=== PATIENT | male | born 1965 | race Caucasian/White ===

== ENCOUNTER 2020-07-25 14:25 | Outpatient (CLI) | payer OTHER | END 2020-07-25 14:26 | disposition home or self-care (01) | LOC: LAB 14:25 | PROVIDERS: ATTEND Pharmacist | DX: Z95.4 Presence of other heart-valve replacement (principal); Z79.01 Long term (current) use of anticoagulants | CPT/HCPCS: 85610 ==

== ENCOUNTER 2020-08-03 11:12 | Outpatient (CLI) | payer OTHER | END 2020-08-03 11:13 | disposition home or self-care (01) | LOC: LAB 11:12 | PROVIDERS: ATTEND Pharmacist | DX: Z79.01 Long term (current) use of anticoagulants (principal); Z95.4 Presence of other heart-valve replacement | CPT/HCPCS: 85610 ==

== ENCOUNTER 2020-08-10 12:01 | Outpatient (CLI) | payer OTHER | END 2020-08-10 12:02 | disposition home or self-care (01) | LOC: LAB 12:01 | PROVIDERS: ATTEND Pharmacist | DX: Z95.4 Presence of other heart-valve replacement (principal); Z79.01 Long term (current) use of anticoagulants | CPT/HCPCS: 85610 ==

== ENCOUNTER 2020-08-24 08:00 | Outpatient (CLI) | payer OTHER | END 2020-08-24 23:59 | disposition home or self-care (01) | LOC: LAB 08:00 | PROVIDERS: ATTEND Pharmacist | DX: Z79.01 Long term (current) use of anticoagulants (principal); Z95.4 Presence of other heart-valve replacement | CPT/HCPCS: 85610 ==

== ENCOUNTER 2020-09-14 10:11 | Outpatient (CLI) | payer OTHER | END 2020-09-14 10:12 | disposition home or self-care (01) | LOC: LAB 10:11 | PROVIDERS: ATTEND Pharmacist | DX: Z95.4 Presence of other heart-valve replacement (principal); Z79.01 Long term (current) use of anticoagulants | CPT/HCPCS: 85610 ==

== ENCOUNTER 2020-09-27 08:00 | Outpatient (CLI) | payer OTHER | END 2020-09-27 23:59 | disposition home or self-care (01) | LOC: LAB 08:00 | PROVIDERS: ATTEND Pharmacist | DX: Z79.01 Long term (current) use of anticoagulants (principal); Z95.4 Presence of other heart-valve replacement | CPT/HCPCS: 85610 ==

== ENCOUNTER 2022-02-01 08:00 | Outpatient (CLI) | payer OTHER ==
[2022-02-01 20:30] LABS: BILIRUBIN,URINE NEGATIVE (NEGATIVE); GLUCOSE, URINE (UA) NEGATIVE (NEGATIVE); KETONES,URINE (UA) NEGATIVE (NEGATIVE); LEUKOCYTE ESTERASE, URINE MODERATE (NEGATIVE); NITRITE,URINE POSITIVE (NEGATIVE); OCCULT BLOOD,URINE LARGE (NEGATIVE); PH,URINE 5.5 PH (5.0-7.5); PROTEIN,URINE 30 mg/dL (NEGATIVE); UROBILINOGEN,URINE 0.2 (NORMAL) E.U./dL (NORMAL)
[2022-02-01 20:33] LABS: CLARITY,URINE SL. CLOUDY (CLEAR)
[2022-02-01 20:37] LABS: WBC CLUMPS,URINE PRESENT; WBC,URINE >25 /HPF (0-3)
[2022-02-01 20:38] LABS: BACTERIA,URINE Many /HPF (None Seen); SQUAMOUS EPITHELIAL CELL,UR FEW Squamous (<= Few)
== END 2022-02-01 23:59 | disposition home or self-care (01) ==
LOC: LAB.S 08:00
PROVIDERS: ATTEND Physician Assistant Medical
DX: N30.01 Acute cystitis with hematuria (principal)
CPT/HCPCS: 81001; 87077; 87086; 87181

== ENCOUNTER 2022-02-02 10:08 | Inpatient (IN) | payer OTHER ==
[2022-02-02] MEDS ORDERED: SODIUM CHLORIDE 0.9% 2,449.41 ML IV STA (10:58)
--- NOTE | 2022-02-02 10:59 | ED Physician Documentation ---
PD HPI URI - Stated complaint Stated Complaint: SEIZURE/FEVER - Chief complaint Chief Complaint: General - History obtained from History obtained from: Patient - History of Present Illness Timing - onset: How many days ago (2) Timing duration: Days (He has had a mild feeling of general unwellness and malaise for maybe a week but really dysuria and hematuria and fever the last 2 days. Seen at walk-in clinic and diagnosed with UTI based on urinalysis and symptoms. Given a prescription But pharmacy did not have it yet so he has not started it.) Timing details: Abrupt onset, Still present Associated symptoms: Fever, Chills (with rigors (he dscribed as "seizures") last night several times.) Contributing factors: Immunocompromised. No: Sick contact, Unimmunized Improves by: Rest, Medication (fever did go down with Tylenol.) Worsened by: Activity (feeling of weakness/fatigue.) Similar symptoms before: Has not had sx before Recently seen: Clinic (walk in yesterday and given Rx for meds but pharmacy had not filled it at the time. Pt did take an doxycycline he had Rx from his [employer] in case of bronchial infection.) Review of Systems Constitutional: reports: Fever, Chills, Myalgias, Fatigue Nose: denies: Rhinorrhea / runny nose, Congestion Throat: denies: Sore throat Cardiac: denies: Chest pain / pressure Respiratory: denies: Dyspnea, Cough GI: reports: Nausea. denies: Abdominal Pain, Vomiting, Diarrhea : reports: Dysuria (for 2 days), Frequency, Hematuria Skin: denies: Rash, Lesions Musculoskeletal: denies: Neck pain Neurologic: reports: Generalized weakness, Near syncope. 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[employer].) PD PAST MEDICAL HISTORY - Past Medical History Past Medical History: Yes Cardiovascular: Arrhythmia (with pacemaker) Respiratory: Other (sarcoidosis) Neuro: None Endocrine/Autoimmune: None GI: None - Past Surgical History Cardiovascular: Pacemaker - Allergies Allergies/Adverse Reactions: Allergies Allergy/AdvReac Type Severity Reaction Status Date / Time clarithromycin [From Biaxin] Allergy Unknown Verified 02/02/22 10:38 clindamycin Allergy Unknown Verified 02/02/22 10:38 Penicillins Allergy Unknown Verified 02/02/22 10:38 PD ED PE NORMAL - Vitals Vital signs reviewed: Yes (hypotensive but not tachycardic) - General General: Alert and oriented X 3, No acute distress, Well developed/nourished - HEENT HEENT: Pharynx benign - Neck Neck: Supple, no meningeal sign, No adenopathy - Cardiac Cardiac: RRR, No murmur - Respiratory Respiratory: No respiratory distress, Clear bilaterally - Abdomen Abdomen: Soft, Non tender - Male Male : Deferred - Rectal Rectal: Deferred - Back Back: Other (some flank tender right side. NO rash. ) - Derm Derm: Normal color, Warm and dry - Neuro Neuro: Alert and oriented X 3, No motor deficit, No sensory deficit, Normal speech Eye Opening: Spontaneous Motor: Obeys Commands Verbal: Oriented GCS Score: 15 Results - Vitals Vitals: Vital Signs - 24 hr 02/02/22 02/02/22 02/02/22 10:27 11:14 12:30 Temperature 37.2 C 37.0 C Heart Rate 74 75 75 Respiratory 18 19 18 Rate Blood Pressure 77/47 L 90/69 86/63 L O2 Saturation 99 98 100 02/02/22 02/02/22 02/02/22 13:30 14:30 16:30 Temperature 36.8 C Heart Rate 75 75 75 Respiratory 20 16 20 Rate Blood Pressure 94/65 92/62 98/83 H O2 Saturation 98 98 99 02/02/22 02/02/22 17:03 17:30 Temperature 36.9 C Heart Rate 75 Respiratory 20 Rate Blood Pressure 116/78 O2 Saturation 100 Oxygen O2 Source Room air - Labs Labs: Laboratory Tests 02/02/22 02/02/22 02/02/22 10:37 10:45 10:45 WBC 11.6 H RBC 4.15 L Hgb 13.9 L Hct 39.3 L MCV 94.7 H MCH 33.5 H MCHC 35.4 RDW 12.5 Plt Count TNP MPV TNP Neut # (Auto) Not Reportable Lymph # (Auto) Not Reportable [place] # (Auto) Not Reportable Eos # (Auto) Not Reportable Baso # (Auto) Not Reportable Absolute Nucleated RBC Not Reportable Total Counted 100 Band Neuts % (Manual) 52 H Abnorm Lymph % (Manual) 0 Metamyelocytes % 6 H Myelocytes % 2 H Nucleated RBC % Not Reportable Neutrophils # (Manual) 10.7 H Lymphocytes # (Manual) 0.0 L Monocytes # (Manual) 0.0 Eosinophils # (Manual) 0.0 Basophils # (Manual) 0.0 Differential Comment MANUAL DIFFERENTIAL Manual Slide Review Indicated WBC Morphology 2+ VACUOLATION Platelet Morphology PLATELET CLUMPING Sodium 133 L Potassium 3.7 Chloride 96 L Carbon Dioxide 22 Anion Gap 15.0 H BUN 29 H Creatinine 2.4 H Estimated GFR (MDRD) 28 L Glucose 171 H Lactic Acid Calcium 9.0 Magnesium 1.3 L Total Bilirubin 1.7 H AST 80 H ALT 46 Alkaline Phosphatase 186 H Total Protein 6.7 Albumin 3.5 Globulin 3.2 Albumin/Globulin Ratio 1.1 Procalcitonin Urine Color BROWN Urine Clarity CLOUDY Urine pH 5.5 Ur Specific Hopkins 1.025 Urine Protein >=300 H Urine Glucose (UA) NEGATIVE Urine Ketones NEGATIVE Urine Occult Blood LARGE H Urine Nitrite NEGATIVE Urine Bilirubin NEGATIVE Urine Urobilinogen 1 (NORMAL) Ur Leukocyte Esterase MODERATE H Urine RBC TNTC H Urine WBC >25 H Urine WBC Clumps PRESENT Ur Epithelial Cells MANY Renal Tubular H Ur Squamous Epith Cells FEW Squamous Urine Bacteria Many H Urine Culture Comments INDICATED Nasal Adenovirus (PCR) Nasal B. parapertussis DNA (PCR) Nasal Coronavir 229E PCR Nasal Coronavir HKU1 PCR Nasal Coronavir NL63 PCR Nasal Coronavir OC43 PCR Nasal Enterovir/Rhinovir PCR Nasal Influenza B PCR Nasal Influenza A PCR Nasal Parainfluen 1 PCR Nasal Parainfluen 2 PCR Nasal Parainfluen 3 PCR Nasal Parainfluen 4 PCR Nasal RSV (PCR) Nasal B.pertussis DNA PCR Nasal C.pneumoniae (PCR) Jordon Human Metapneumo PCR Nasal M.pneumoniae (PCR) Nasal SARS-CoV-2 (PCR) 02/02/22 02/02/22 02/02/22 10:45 10:45 11:25 WBC RBC Hgb Hct MCV MCH MCHC RDW Plt Count MPV Neut # (Auto) Lymph # (Auto) [place] # (Auto) Eos # (Auto) Baso # (Auto) Absolute Nucleated RBC Total Counted Band Neuts % (Manual) Abnorm Lymph % (Manual) Metamyelocytes % Myelocytes % Nucleated RBC % Neutrophils # (Manual) Lymphocytes # (Manual) Monocytes # (Manual) Eosinophils # (Manual) Basophils # (Manual) Differential Comment Manual Slide Review WBC Morphology Platelet Morphology Sodium Potassium Chloride Carbon Dioxide Anion Gap BUN Creatinine Estimated GFR (MDRD) Glucose Lactic Acid 4.6 H* Calcium Magnesium Total Bilirubin AST ALT Alkaline Phosphatase Total Protein Albumin Globulin Albumin/Globulin Ratio Procalcitonin 142.912 H* Urine Color Urine Clarity Urine pH Ur Specific Hopkins Urine Protein Urine Glucose (UA) Urine Ketones Urine Occult Blood Urine Nitrite Urine Bilirubin Urine Urobilinogen Ur Leukocyte Esterase Urine RBC Urine WBC Urine WBC Clumps Ur Epithelial Cells Ur Squamous Epith Cells Urine Bacteria Urine Culture Comments Nasal Adenovirus (PCR) NOT DETECTED Nasal B. parapertussis DNA (PCR) NOT DETECTED Nasal Coronavir 229E PCR NOT DETECTED Nasal Coronavir HKU1 PCR NOT DETECTED Nasal Coronavir NL63 PCR NOT DETECTED Nasal Coronavir OC43 PCR NOT DETECTED Nasal Enterovir/Rhinovir PCR NOT DETECTED Nasal Influenza B PCR NOT DETECTED Nasal Influenza A PCR NOT DETECTED Nasal Parainfluen 1 PCR NOT DETECTED Nasal Parainfluen 2 PCR NOT DETECTED Nasal Parainfluen 3 PCR NOT DETECTED Nasal Parainfluen 4 PCR NOT DETECTED Nasal RSV (PCR) NOT DETECTED Nasal B.pertussis DNA PCR NOT DETECTED Nasal C.pneumoniae (PCR) NOT DETECTED Jordon Human Metapneumo PCR NOT DETECTED Nasal M.pneumoniae (PCR) NOT DETECTED Nasal SARS-CoV-2 (PCR) NOT DETECTED 02/02/22 02/02/22 02/02/22 14:13 17:02 17:20 WBC RBC Hgb Hct MCV MCH MCHC RDW Plt Count MPV Neut # (Auto) Lymph # (Auto) [place] # (Auto) Eos # (Auto) Baso # (Auto) Absolute Nucleated RBC Total Counted Band Neuts % (Manual) Abnorm Lymph % (Manual) Metamyelocytes % Myelocytes % Nucleated RBC % Neutrophils # (Manual) Lymphocytes # (Manual) Monocytes # (Manual) Eosinophils # (Manual) Basophils # (Manual) Differential Comment Manual Slide Review WBC Morphology Platelet Morphology Sodium Potassium Chloride Carbon Dioxide Anion Gap BUN Creatinine Estimated GFR (MDRD) Glucose Lactic Acid 3.0 H* 2.6 H 2.5 H Calcium Magnesium Total Bilirubin AST ALT Alkaline Phosphatase Total Protein Albumin Globulin Albumin/Globulin Ratio Procalcitonin Urine Color Urine Clarity Urine pH Ur Specific Hopkins Urine Protein Urine Glucose (UA) Urine Ketones Urine Occult Blood Urine Nitrite Urine Bilirubin Urine Urobilinogen Ur Leukocyte Esterase Urine RBC Urine WBC Urine WBC Clumps Ur Epithelial Cells Ur Squamous Epith Cells Urine Bacteria Urine Culture Comments Nasal Adenovirus (PCR) Nasal B. parapertussis DNA (PCR) Nasal Coronavir 229E PCR Nasal Coronavir HKU1 PCR Nasal Coronavir NL63 PCR Nasal Coronavir OC43 PCR Nasal Enterovir/Rhinovir PCR Nasal Influenza B PCR Nasal Influenza A PCR Nasal Parainfluen 1 PCR Nasal Parainfluen 2 PCR Nasal Parainfluen 3 PCR Nasal Parainfluen 4 PCR Nasal RSV (PCR) Nasal B.pertussis DNA PCR Nasal C.pneumoniae (PCR) Jordon Human Metapneumo PCR Nasal M.pneumoniae (PCR) Nasal SARS-CoV-2 (PCR) - Rads (name of study) chest xray Radiology: Prelim report reviewed (no infiltrates. Pacemaker noted. ), See rad report KUB CT Radiology: Prelim report reviewed (Bladder wall thickening. No ureteral stones nor obstructions. No kidney changes. ), See rad report PD MEDICAL DECISION MAKING - ED course Complexity details: reviewed results (Findings consistent with sepsis with elevated white count and bandemia as well as elevated lactate and procalcitonin.), re-evaluated patient (The patient still appears well with good color and interaction and alertness. Consider low blood pressure relative to immune suppression and possible adrenal suppression. Can give dexamethasone in consultation with the hospitalist. Continue IV fluids.), considered differential (Started treatment for UTI yesterday. Septic feeling with rigors fever and general weakness. No altered mentation.), d/w patient ED course: Blood pressure did improve. This seemed to be response to fluids but also to time to with after steroid administration. Consider some adrenal and suppression. I would not anticipate this with his azathioprine and he is not on steroids. However did seem to act that way. He is still awake alert and not in any apparent distress. Lactate is trending down. Departure - Departure Disposition: [facility] DC/Xfer Clinical Impression: UTI (urinary tract infection) Qualifiers: Urinary tract infection type: acute pyelonephritis Qualified Code(s): N10 - Acute pyelonephritis Sepsis Qualifiers: Sepsis type: sepsis due to unspecified organism Sepsis acute organ dysfunction status: with acute organ dysfunction Severe sepsis acute organ dysfunction type: acute renal failure Acute renal failure type: unspecified Severe sepsis shock status: without septic shock Qualified Code(s): A41.9 - Sepsis, unspecified organism Condition: Stable Record reviewed to determine appropriate education?: Yes
[2022-02-02 11:08] LABS: BASOPHILS % (AUTO) 0.6 %; EOSINOPHILS % (AUTO) 0.6 %; HCT - HEMATOCRIT 39.3 % (42.0-52.0); HGB - HEMOGLOBIN 13.9 g/dL (14.0-18.0); LYMPHOCYTES % (AUTO) 1.7 %; MEAN CORPUSCULAR HEMOGLOBIN 33.5 pg (27.0-31.0); MEAN CORPUSCULAR HGB CONC 35.4 g/dL (32.0-36.0); MEAN CORPUSCULAR VOLUME 94.7 fL (80.0-94.0); MONOCYTES % (AUTO) 0.8 %; NEUTROPHILS % (AUTO) 95.7 %; RED BLOOD COUNT 4.15 10^6/uL (4.70-6.10); RED CELL DISTRIBUTION WIDTH 12.5 % (12.0-15.0); WHITE BLOOD COUNT 11.6 x10^3/uL (4.8-10.8)
[2022-02-02 11:11] LABS: SLIDE REVIEW? Indicated
[2022-02-02 11:13] LABS: ABNORMAL LYMPHS % (MANUAL) 0 %; LYMPHOCYTES % (MANUAL) 0 %
[2022-02-02 11:18] LABS: ALBUMIN 3.5 g/dL (3.2-5.5); ALBUMIN/GLOBULIN RATIO 1.1 (1.0-2.2); BILIRUBIN,TOTAL 1.7 mg/dL (0.2-1.0); CREATININE 2.4 mg/dL (0.6-1.2); MAGNESIUM 1.3 mg/dL (1.7-2.8); POTASSIUM 3.7 mmol/L (3.5-5.0); TOTAL PROTEIN 6.7 g/dL (6.7-8.2)
[2022-02-02] MEDS ORDERED: cefTRIAXone 1 GM VIAL IVP STA (11:18)
[2022-02-02 11:23] LABS: LACTIC ACID, VENOUS 4.6 mmol/L (0.5-2.2)
--- OUTSIDE RECORDS SUMMARY | 2022-02-02 11:33 | EXTERNAL MEDICAL SUMMARY RPT | Continuity of Care Document ---
:1965 Author Organization [facility] Address [address] [place] [address] Phone Allergies No information. Encounters No information. Functional Status No information. Immunizations No information. Medications date description facility [id number] [email or web address] [facility] Mario [phone] cefdinir [facility] Silas Problems No information. Procedures date description facility [id number] Visit Code Hold [facility] Mraio [phone] POC URINALYSIS DIP [facility] Results/Labs No information. Social History No information. Vital Signs No information.
--- NOTE | 2022-02-02 11:45 | XRAY Report ---
PROCEDURE: Chest 1 View X-Ray INDICATIONS: fever and dyspnea TECHNIQUE: One view of the chest was acquired. COMPARISON: None FINDINGS: Surgical changes and devices: Sternal wires and pacemaker noted. Lungs and pleura: No pleural effusions or pneumothorax. Lungs are clear. Mediastinum: Mediastinal contours appear normal. Heart size is enlarged. Bones and chest wall: No suspicious bony lesions. Overlying soft tissues appear unremarkable. IMPRESSION: No acute pulmonary process. Reviewed by: Santa Ochoa MD on 02/02/2022 11:43 AM PDT Approved by: Santa Ochoa MD on 02/02/2022 11:43 AM PDT Station ID: [id number]
[2022-02-02 11:46] LABS: GLUCOSE, URINE (UA) NEGATIVE (NEGATIVE); KETONES,URINE (UA) NEGATIVE (NEGATIVE); LEUKOCYTE ESTERASE, URINE MODERATE (NEGATIVE); NITRITE,URINE NEGATIVE (NEGATIVE); OCCULT BLOOD,URINE LARGE (NEGATIVE); PH,URINE 5.5 PH (5.0-7.5); PROTEIN,URINE >=300 mg/dL (NEGATIVE); UROBILINOGEN,URINE 1 (NORMAL) E.U./dL (NORMAL)
[2022-02-02 11:49] LABS: CLARITY,URINE CLOUDY (CLEAR)
[2022-02-02 11:50] LABS: BILIRUBIN,URINE NEGATIVE (NEGATIVE); ICTOTEST,URINE NEGATIVE
[2022-02-02 12:07] LABS: BAND NEUTROPHILS % (MANUAL) 52 %; DIFFERENTIAL COMMENT MANUAL DIFFERENTIAL; METAMYELOCYTES % (MANUAL) 6 %; MYELOCYTES % (MANUAL) 2 %; NEUTROPHILS # (MANUAL) 10.7 10^3/uL (1.5-6.6); PLATELET MORPHOLOGY PLATELET CLUMPING (NORMAL); WBC MORPHOLOGY (MULTIPLE) 2+ VACUOLATION (NORMAL)
[2022-02-02 12:16] LABS: BACTERIA,URINE Many /HPF (None Seen); RBC,URINE TNTC /HPF (0-5); SQUAMOUS EPITHELIAL CELL,UR FEW Squamous (<= Few); WBC CLUMPS,URINE PRESENT
[2022-02-02 12:17] LABS: WBC,URINE >25 /HPF (0-3)
--- NOTE | 2022-02-02 12:31 | CT Report ---
PROCEDURE: Abdomen/Pelvis WO INDICATIONS: UTI and flank pain/ fever TECHNIQUE: Noncontrast 5 mm thick sections acquired from the diaphragms to the symphysis. 5 mm coronal and sagi ttal reformats were then performed. For radiation dose reduction, the following was used: automated exposure control, adjustment of mA and/or kV according to patient size. COMPARISON: None. FINDINGS: Image quality: Excellent. ABDOMEN: Lung bases: Lung bases are clear. Heart size is enlarged. Solid organs: Liver and spleen are normal in size. Gallbladder has been removed Pancreas is normal in contours. No adrenal nodules. Kidneys are normal in size, without hydronephrosis or nephrolithi asis. Peritoneum and bowel: Unenhanced bowel loops demonstrate normal wall thickness and caliber. No free fluid or air. Colonic diverticula are present without associated inflammatory change. Nodes and vessels: No retroperitoneal or mesenteric adenopathy by size criteria. Aorta and inferior vena cava are normal in caliber. Miscellaneous: No ventral hernias. PELVIS: Genitourinary: Bladder wall demonstrates mild thickening. It is incompletely distended. There is a v ajay minimal appearance of pericystic stranding. Miscellaneous: Fat-containing left inguinal hernia. Bones: No suspicious bony lesions. No vertebral body compression fractures. IMPRESSION: No renal, ureteral or bladder calculi. Bladder wall is thickened which can be secondary to incomplete distention. However, it is also noted that there is mild pericystic stranding which can be seen with cystitis. Recommend correlation patien t's symptoms as well as urinalysis. Reviewed by: Santa Ochoa MD on 02/02/2022 12:30 PM PDT Approved by: Santa Ochoa MD on 02/02/2022 12:30 PM PDT Station ID: [id number]
[2022-02-02] MEDS ORDERED: DEXAMETHASONE 10 MG/ML VIAL IVP STA (13:11)
[2022-02-02 13:12] LABS: B. PARAPERTUSSIS- RESP PCR PAN NOT DETECTED; B. PERTUSSIS- RESP PCR PANEL NOT DETECTED; C. PNEUMONIAE- RESP PCR PANEL NOT DETECTED; CORONAVIRUS 229E-RESP PCR NOT DETECTED; CORONAVIRUS HKU1-RESP PCR NOT DETECTED; CORONAVIRUS NL63-RESP PCR NOT DETECTED; CORONAVIRUS OC43-RESP PCR NOT DETECTED; HUMAN METAPNEUMOVIRUS NOT DETECTED; INFLUENZA A- RESP PCR PANEL NOT DETECTED; INFLUENZA B - RESP PCR PANEL NOT DETECTED; M. PNEUMONIAE- RESP PCR PANEL NOT DETECTED; PARAINFLUENZA VIRUS 1 NOT DETECTED; PARAINFLUENZA VIRUS 2 NOT DETECTED; PARAINFLUENZA VIRUS 3 NOT DETECTED; PARAINFLUENZA VIRUS 4 NOT DETECTED; RHINOVIRUS/ENTEROVIRUS NOT DETECTED; RSV- RESP PCR PANEL NOT DETECTED; SARS-CoV-2 -RESP PCR PANEL NOT DETECTED
[2022-02-02] MEDS ORDERED: SODIUM CHLORIDE 0.9% 1,000 ML IV STA (13:17)
[2022-02-02] MEDS ORDERED: ONDANSETRON 4 MG/2 ML VIAL IVP STA (16:49)
[2022-02-02 17:41] LABS: LACTIC ACID, VENOUS 2.5 mmol/L (0.5-2.2)
[2022-02-02] MEDS: SODIUM CHLORIDE 0.9% 1,000 ML IV SCH (19:35)
--- NOTE | 2022-02-02 20:01 | HISTORY & PHYSICAL EXAMINATION ---
Chief Complaint - Chief Complaint Chief Complaint: weakness, fever, rigors, dysuria, hematuria History of Present Illness - Admitted From Admitted From:: [facility] ED - History Obtained From Records Reviewed: yes History obtained from: patient - History of Present Illness HPI Comment/Other: Patient is a 56-year-old male with medical history significant for sarcoidosis affecting the lungs and heart, post herpetic neuralgia, insomnia, arrhythmia and hypothyroidism who presented to the ED today with complaint of dysuria for 2 days, hematuria today and rigors. His temperature was as high as 104 F at home. He is on azathioprine for sarcoidosis. He has not taken this in 2 days. Upon presentation to the ED he had systolic blood pressures as low as 77. Work- up included a CBC which showed white blood cell count of 11 with 52% bands. His lactic acid was 4.6. Urine analysis done was strongly indicated of of a urinary tract infection. CT of the abdomen/pelvis showed stranding consistent with cystitis. As a result of the above he was presented for admission for further treatment. At bedside he is resting somewhat comfortably but appears anxious. He denies chest pain, dyspnea. He reports nausea currently. He last vomited the previous night. He also reports generalized abdominal discomfort. The rest of the history is unremarkable. History - Past Medical History Cardiovascular: reports: Arrhythmia Respiratory: reports: Other Neuro: reports: None, Other (Post herpetic neuralgia) Endocrine/Autoimmune: reports: None, HyPOthyroidism (following thyroidectomy) GI: reports: None Other Past Medical History: sarcodoisis, Insomnia - Past Surgical History General: reports: Cholecystectomy, Other (right inguinal hernia) Cardiovascular: reports: Pacemaker, Other (tricuspid valve replacement) Other past surgical history: Right ureter surgery - Family & Social History Family History Comment/Other: Patient's father had history of coronary artery disease and bladder cancer. His mother had history of lung cancer and diabetes mellitus. His sister has MS. Social History Notes: He lives at home with his and son. He denies tobacco use, alcohol or recreational substance use. He is independent of activities of daily living. - POLST Patient has POLST: No POLST Status: Full Code Meds/Allgy - Allergies Allergies/Adverse Reactions: Allergies Allergy/AdvReac Type Severity Reaction Status Date / Time clarithromycin [From Biaxin] Allergy Unknown Verified 02/02/22 10:38 clindamycin Allergy Unknown Verified 02/02/22 10:38 Penicillins Allergy Unknown Verified 02/02/22 10:38 Review of Systems - Constitutional Constitutional: reports: Fever, Chills, Weakness - Eyes Eyes: denies: Pain, Dipolpia - Ears, Nose & Throat Ears, Nose & Throat: denies: Ear pain, Hoarseness - Cardiovascular Cariovascular: denies: Irregular heart rate, Palpitations, Chest pain, Edema, Lightheadedness, Syncope - Respiratory Respiratory: denies: Cough, SOB at rest, SOB with exertion - Gastrointestinal Gastrointestinal: reports: Abdominal pain, Nausea, Vomiting. denies: Abdominal distention, Constipation, Diarrhea, Reflux/heartburn - Genitourinary Genitourinary: reports: Dysuria, Hematuria. denies: Frequency, Urgency, Incontinence, Flank pain - Musculoskeletal Musculoskeletal: denies: Muscle pain, Back pain, Muscle aches - Integumentary Integumentary: denies: Rash, Pruritis - Neurological Neurological: denies: General weakness, Headache, Dizziness - Psychiatric Psychiatric: denies: Depression, Anxiety - Endocrine Endocrine: denies: Polyuria, Polydypsia - Hematologic/Lymphatic Hematologic/Lymphatic: denies: Anemia, Bruising, Petechiae Prior Level of Functionality: He is independent of activities of daily living. Exam - Vital Signs Vital Signs: Vital Signs x48h Temp Pulse Pulse Resp BP BP Pulse Ox 02/02/22 18:58 36.8 C 74 16 110/73 100 02/02/22 17:30 36.9 C 02/02/22 17:03 75 20 116/78 100 02/02/22 16:30 75 20 98/83 H 99 02/02/22 14:30 36.8 C 75 16 92/62 98 02/02/22 13:30 75 20 94/65 98 02/02/22 12:30 37.0 C 75 18 86/63 L 100 - Physical Exam General Appearance: positive: Alert, Mild distress Eyes Bilateral: positive: PERRL, EOMI ENT: positive: Dry mucous membranes Neck: positive: No JVD, Trachea midline Respiratory: positive: Chest non-tender, No respiratory distress, Breath sounds nml. negative: Wheezes, Rales, Rhonchi Cardiovascular: positive: Regular rate & rhythm Abdomen: positive: Non-tender, Nml bowel sounds, No distention. negative: Guarding, Rebound Back: positive: Nml inspection Skin: positive: No rash, Warm, Dry Extremities: positive: Non-tender, Full ROM, Nml appearance, No pedal edema Neurologic/Psychiatric: positive: Oriented x3, Mood/affect nml Sepsis Event Note (H) - Evaluation Current Stage of Sepsis: Sepsis Possible source of Sepsis: positive: Genitourinary - Sepsis Criteria Sepsis Criteria: Recorded Temperature greater than 38.3C or Less than 36C, WBC count greater than 10% bands, Metabolic: lactate > 2 mmol/L Conclusion/Plan - Problem List (1) Sepsis Conclusion/Plan: Secondary to UTI. CT of the abdomen/pelvis showed mild pericystic stranding consistent with cystitis. Urine analysis showed moderate leukocyte esterase, greater than 25 WBCs and many bacteria. Urine was cloudy in appearance. Count was 11.6 with 52% bands. Blood and urine cultures pending. Lactic acid 4.6 with procalcitonin of 143 Rocephin 1 g IV started in the ED. We will continue Rocephin 1 g IV daily. Fluid resuscitation in the ED. He received about 3-1/2 L of fluid in the ED. We will continue IV hydration with normal saline at 150 mL/h. We will continue to hold patient's sotalol, torsemide and azathioprine while treating sepsis. Qualifiers: Sepsis type: sepsis due to unspecified organism Sepsis acute organ dysfunction status: with acute organ dysfunction Severe sepsis acute organ dysfunction type: acute renal failure Acute renal failure type: unspecified Severe sepsis shock status: without septic shock Qualified Code(s): A41.9 - Sepsis, unspecified organism; R65.20 - Severe sepsis without septic shock; N17.9 - Acute kidney failure, unspecified (2) UTI (urinary tract infection) Conclusion/Plan: CT of the abdomen/pelvis showed mild pericystic stranding consistent with cy stitis. Urine analysis showed moderate leukocyte esterase, greater than 25 WBCs and many bacteria. Urine was cloudy in appearance. Count was 11.6 with 52% bands. Blood and urine cultures pending. Rocephin 1 g IV started in the ED. We will continue Rocephin 1 g IV daily. Fluid resuscitation in the ED. He received about 3-1/2 L of fluid in the ED. We will continue IV hydration with normal saline at 150 mL/h. We will continue to hold patient's sotalol, torsemide and azathioprine while treating sepsis. Qualifiers: Urinary tract infection type: acute pyelonephritis Qualified Code(s): N10 - Acute pyelonephritis (3) Acute kidney injury Conclusion/Plan: Likely secondary to sepsis from UTI. Creatinine was 2.4 with estimated GFR of 28. Patient received a total of 3-1/2 L of IV fluid in the ED. IV hydration continue with normal saline at 150 mL/h. Anticipating improvement in renal function. (4) Sarcoidosis Conclusion/Plan: Affecting pulmonary and cardiac systems. Patient is normally on azathioprine which has been held while treating sepsis. (5) Postherpetic neuralgia Conclusion/Plan: Gabapentin 300 mg in the morning and 600 mg at night. (6) Cardiac arrhythmia Conclusion/Plan: Resume patient's sotalol 120 mg p.o. twice daily starting in the morning. (7) Hypothyroidism Conclusion/Plan: On Synthroid 150 mcg p.o. daily. (8) Insomnia Conclusion/Plan: Ativan 0.5 mg p.o. every night as needed - Lab Results Fish Bones: 02/02/22 10:45 02/02/22 10:45 Core Measures - Anticipated LOS I expect patient to be DC'd or transferred within 96 hours.: Yes - DVT/VTE - Prophylaxis VTE/DVT Prophylaxis med ordered at admit?: Yes
[2022-02-02] MEDS ORDERED: LORazepam 0.5 MG TABLET PO PRN (20:09)
[2022-02-02] MEDS: ACETAMINOPHEN 325 MG TABLET PO PRN (20:37)
[2022-02-02 20:38] LABS: LACTIC ACID, VENOUS 2.5 mmol/L (0.5-2.2)
[2022-02-02] MEDS: GABAPENTIN 300 MG CAPSULE PO SCH (20:51)
[2022-02-02] MEDS ORDERED: GABAPENTIN 400 MG CAPSULE PO SCH (21:00)
[2022-02-02] MEDS: SODIUM CHLORIDE FLUSH 0.9% 10 ML SYRINGE IVP SCH (23:29)
[2022-02-02] MEDS ORDERED: LORazepam 0.5 MG TABLET PO STA (23:30)
[2022-02-03] LABS: LACTIC ACID, VENOUS 2.5 mmol/L (0.5-2.2)
[2022-02-03] MEDS: SODIUM CHLORIDE 0.9% 1,000 ML IV SCH ×4 (01:53→22:31)
[2022-02-03] MEDS: ACETAMINOPHEN 325 MG TABLET PO PRN ×3 (02:08→19:36)
[2022-02-03 03:14] LABS: LACTIC ACID, VENOUS 2.1 mmol/L (0.5-2.2)
[2022-02-03] MEDS: LEVOTHYROXINE 75 MCG TABLET PO SCH (05:56)
[2022-02-03 06:15] LABS: BASOPHILS % (AUTO) 0.4 %; HCT - HEMATOCRIT 33.2 % (42.0-52.0); HGB - HEMOGLOBIN 11.7 g/dL (14.0-18.0); LYMPHOCYTES % (AUTO) 3.8 %; MEAN CORPUSCULAR HEMOGLOBIN 32.4 pg (27.0-31.0); MEAN CORPUSCULAR HGB CONC 35.2 g/dL (32.0-36.0); MEAN PLATELET VOLUME 10.7 fL (7.4-11.4); MONOCYTES % (AUTO) 6.2 %; NEUTROPHILS % (AUTO) 88.8 %; PLT - PLATELET COUNT 143 10^3/uL (130-450); RED BLOOD COUNT 3.61 10^6/uL (4.70-6.10); RED CELL DISTRIBUTION WIDTH 12.4 % (12.0-15.0); WHITE BLOOD COUNT 14.2 x10^3/uL (4.8-10.8)
[2022-02-03 06:24] LABS: ABNORMAL LYMPHS % (MANUAL) 0 %
[2022-02-03 06:25] LABS: CALCIUM 8.2 mg/dL (8.5-10.3); CREATININE 1.1 mg/dL (0.6-1.2); MAGNESIUM 1.5 mg/dL (1.7-2.8); POTASSIUM 4.3 mmol/L (3.5-5.0)
[2022-02-03 06:52] LABS: BAND NEUTROPHILS % (MANUAL) 13 %; DIFFERENTIAL COMMENT MANUAL DIFFERENTIAL; LYMPHOCYTES # (MANUAL) 0.1 10^3/uL (1.5-3.5); LYMPHOCYTES % (MANUAL) 1 %; MONOCYTES # (MANUAL) 0.4 10^3/uL (0.0-1.0); NEUTROPHILS # (MANUAL) 13.6 10^3/uL (1.5-6.6); PLATELET ESTIMATE, MANUAL NORMAL (130-450,000) (NORMAL); RBC MORPHOLOGY (MULTIPLE) NORMAL APPEARANCE (NORMAL)
[2022-02-03] MEDS: cefTRIAXone 1 GM in SODIUM CHLORIDE 0.9% MINIBAG 100 ML IV SCH (08:33)
[2022-02-03] MEDS: HYDROCORTISONE SUCCINATE 100 MG/2 ML VIAL IVP SCH ×3 (08:33→20:48)
[2022-02-03] MEDS: SODIUM CHLORIDE FLUSH 0.9% 10 ML SYRINGE IVP SCH ×3 (08:36→23:18)
[2022-02-03] MEDS: GABAPENTIN 300 MG CAPSULE PO SCH ×2 (08:40→19:37)
[2022-02-03] MEDS: ENOXAPARIN 40 MG/0.4 ML SYRINGE SUBQ SCH (08:43)
[2022-02-03] MEDS: SOTALOL 80 MG TABLET PO SCH ×2 (08:44→19:37)
[2022-02-03 09:41] LABS: LACTIC ACID, VENOUS 2.1 mmol/L (0.5-2.2)
--- NOTE | 2022-02-03 09:59 | PHARMACY PROGRESS NOTE ---
- Best Possible Medication History Admit Date and Time: 02/02/22 1825 Processed by: Pharmacy Medication History completed: Yes Patient Interview: Completed Secondary Source(s): Written medication list, Physician records, Pharmacy records, Insurance records As the person ultimately responsible for medication therapy, providers are able to order a medication from an existing home medication list in [facility] via the "Reconcile Routine" prior to Confirmation of that medication by director of sales support. Such practice is discouraged except when the physician, in their clinical judgment, deems that a medical need exists for a medication without regard to previous use.
[2022-02-03] MEDS: SODIUM CHLORIDE FLUSH 0.9% 10 ML SYRINGE IVP PRN (13:29)
[2022-02-03] MEDS: ONDANSETRON 4 MG/2 ML VIAL IVP PRN (16:06)
--- NOTE | 2022-02-03 19:07 | PROVIDER PROGRESS NOTE ---
Assessment/Plan - Problem List (1) Sepsis Qualifiers: Sepsis type: sepsis due to unspecified organism Sepsis acute organ dysfunction status: with acute organ dysfunction Severe sepsis acute organ dysfunction type: acute renal failure Acute renal failure type: unspecified Severe sepsis shock status: without septic shock Qualified Code(s): A41.9 - Sepsis, unspecified organism; R65.20 - Severe sepsis without septic shock; N17.9 - Acute kidney failure, unspecified Assessment/Plan: Sepsis from a UTI/ cystitis seen on CT imaging and abn U/A. he is still weak and groggy. Rocephin IV started Fluid resuscitation in the ED. He received about 3-1/2 L of fluid in the ED. We will continue IV hydration with normal saline at 150 mL/h. We were holding patient's sotalol, torsemide and azathioprine while treating sepsis. Will start sotalol now Awaiting culture results (2) UTI (urinary tract infection) Conclusion/Plan: CT of the abdomen/pelvis showed mild pericystic stranding consistent with cystitis. Urine analysis showed moderate leukocyte esterase, greater than 25 WBCs and many bacteria. Urine was cloudy in appearance. Count was 11.6 with 52% bands. Blood and urine cultures pending. Rocephin 1 g IV started in the ED. We will continue Rocephin 1 g IV daily. Fluid resuscitation in the ED. He received about 3-1/2 L of fluid in the ED. We will continue IV hydration with normal saline at 150 mL/h. Awaiting culture results (3) Acute kidney injury Conclusion/Plan: Likely secondary to sepsis from UTI. Creatinine was 2.4 with estimated GFR of 28. Patient received a total of 3-1/2 L of IV fluid in the ED. IV hydration continuimg with normal saline at 150 mL/h. Avoid nephrotoxins Follow BMP daily (4) Sarcoidosis Conclusion/Plan: Affecting pulmonary and cardiac systems. The details of those pathologies arr not known. Pt is too groggy to give details. Patient is normally on azathioprine which has been held while treating sepsis. (5) Postherpetic neuralgia Conclusion/Plan: Will resume Gabapentin 300 mg in the morning and 600 mg at night. (6) Cardiac arrhythmia Conclusion/Plan: The details of of what arrhythmia are not known. Resuming patient's sotalol 120 mg p.o. twice daily starting today (7) Hypothyroidism Conclusion/Plan: On Synthroid 150 mcg p.o. daily. (8) Insomnia Conclusion/Plan: Ativan 0.5 mg p.o. every night as needed was ordered, on top of his usual Trazadone at hs. - Current Meds Current Meds: Current Medications Generic Name Dose Route Start Last Admin Trade Name Freq PRN Reason Stop Dose Admin Acetaminophen 650 mg 02/02/22 18:25 02/03/22 13:37 Acetaminophen 325 Mg Tablet PO 650 mg Q4HR PRN Administration Pain 1 to 4, or Fever Enoxaparin Sodium 40 mg 02/03/22 09:00 02/03/22 08:43 Enoxaparin 40 Mg/0.4 Ml Syringe SUBQ 40 mg DAILY MONICA Administration Gabapentin 300 mg 02/03/22 09:00 02/03/22 08:40 Gabapentin 300 Mg Capsule PO 300 mg DAILY MONICA Administration Gabapentin 600 mg 02/02/22 21:00 02/02/22 20:51 Gabapentin 300 Mg Capsule PO 600 mg QPM MONICA Administration Hydrocortisone Sodium Succinate 100 mg 02/03/22 08:00 02/03/22 13:29 Hydrocortisone Succinate 100 Mg/2 Ml Vial IVP 100 mg TID MONICA Administration Sodium Chloride 1,000 mls @ 150 mls/hr 02/02/22 19:00 02/03/22 18:10 Normal Saline 0.9% IV 150 mls/hr .Q6H40M MONICA Administration Ceftriaxone Sodium 1 gm/ 100 mls @ 200 mls/hr 02/03/22 09:00 02/03/22 09:05 Sodium Chloride IV Infused DAILY MONICA Infusion Levothyroxine Sodium 150 mcg 02/03/22 07:00 02/03/22 05:56 Levothyroxine 75 Mcg Tablet PO 150 mcg QDAC MONICA Administration Lorazepam 0.5 mg 02/02/22 20:09 02/02/22 20:54 Lorazepam 0.5 Mg Tablet PO 0.5 mg QPM PRN Administration Insomnia Ondansetron HCl 4 mg 02/02/22 18:25 02/03/22 16:06 Ondansetron 4 Mg/2 Ml Vial IVP 4 mg Q6HR PRN Administration Nausea / Vomiting Sodium Chloride 10 ml 02/02/22 18:25 02/03/22 13:29 Sodium Chloride Flush 0.9% 10 Ml Syringe IVP 10 ml PRN PRN Administration NEEDED PER PROVIDER ORDERS Sodium Chloride 10 ml 02/03/22 01:00 02/03/22 16:02 Sodium Chloride Flush 0.9% 10 Ml Syringe IVP Not Given 0100,0900,1700 MONICA Sotalol HCl 120 mg 02/03/22 09:00 02/03/22 08:44 Sotalol 80 Mg Tablet PO 120 mg BID MONICA Administration - Lab Result Fish Bone Diagrams: 02/04/22 06:14 02/04/22 06:14 - Additional Planning My Orders: My Active Orders 02/02/22 18:25 Activity Orders [RC] Q2HR IO [RC] IOSHIFT Initiate Bowel Care Protocol [RC] .protocol Initiate Line Care Protocol [RC] QSHIFT Initiate Personal Care Protoco [RC] .protocol Oxygen Therapy [RC] .PRN Telemetry- [RC] Q4HR Vital Signs [RC] Q3HR Acetaminophen [Tylenol] 650 mg PO Q4HR PRN Ondansetron Inj [Zofran Inj] 4 mg IVP Q6HR PRN Sodium Chloride Flush 0.9% [Normal Saline Flush 0.9%] 10 ml IVP PRN PRN Code Status [OTHERS] Routine Condition of Patient [OTHERS] Routine DVT Prophylaxis [OTHERS] Routine 02/02/22 18:28 IV Insert [RC] .ONCE 02/02/22 18:29 Initiate Line Care Protocol [RC] QSHIFT 02/02/22 19:00 Sodium Chloride 0.9% [Normal Saline 0.9%] 1,000 ml IV 150 mls/hr 02/03/22 01:00 Sodium Chloride Flush 0.9% [Normal Saline Flush 0.9%] 10 ml IVP 0100,0900,1700 02/03/22 08:00 Hydrocortisone Succinate [Solu-CORTEF] 100 mg IVP TID 02/03/22 09:00 Enoxaparin [Lovenox] 40 mg SUBQ DAILY cefTRIAXone [Rocephin] 1 gm Sodium Chloride 0.9% Minibag [Normal Saline 0.9% Minibag] 100 ml IV DAILY 02/04/22 05:00 BMP - BASIC METABOLIC PANEL [CHEM] DAILYLAB CBC - COMP BLD CT W/AUTO DIFF [HEME] DAILYLAB 02/05/22 05:00 BMP - BASIC METABOLIC PANEL [CHEM] DAILYLAB CBC - COMP BLD CT W/AUTO DIFF [HEME] DAILYLAB 02/06/22 05:00 CBC - COMP BLD CT W/AUTO DIFF [HEME] DAILYLAB Subjective - Subjective Patient Reports: Other (Sleepy, awakens but is groggy) Objective Vital Signs: Vital Signs - 24 hr 02/02/22 02/03/22 02/03/22 23:31 02:11 06:00 Temperature 36.6 C 36.4 C L 36.4 C L Heart Rate [ 75 76 75 Brachial] Respiratory 17 20 18 Rate Blood Pressure 105/66 118/74 94/64 [Left Brachial artery] O2 Saturation 99 98 99 02/03/22 02/03/22 02/03/22 07:29 12:00 15:00 Temperature 36.5 C 36.5 C 36.5 C Heart Rate [ 74 74 75 Brachial] Respiratory 16 20 20 Rate Blood Pressure 107/69 113/91 H 110/73 [Left Brachial artery] O2 Saturation 98 100 98 02/03/22 18:00 Temperature 36.4 C L Heart Rate [ 74 Brachial] Respiratory 17 Rate Blood Pressure 134/84 H [Left Brachial artery] O2 Saturation 99 Oxygen O2 Source Room air I&O (Last 24 Hrs): Intake and Output Totals x24h 02/01/22 02/02/22 02/03/22 23:59 23:59 23:59 Intake Total 3649.41 4092 Output Total 575 1075 Balance 3074.41 3017 General: Other (Lethargic) HEENT: Mucous membr. moist/pink Neck: Supple Neuro: Alert (Lethargic. non-focal grossly) Cardiovascular: Regular rate Respiratory: No respiratory distress Abdomen: Soft Extremities: No edema, No tenderness/swelling - Results Results: Laboratory Results WBC 14.2 x10^3/uL (4.8-10.8) H 02/03/22 06:09 RBC 3.61 10^6/uL (4.70-6.10) L 02/03/22 06:09 Hgb 11.7 g/dL (14.0-18.0) L 02/03/22 06:09 Hct 33.2 % (42.0-52.0) L 02/03/22 06:09 MCV 92.0 fL (80.0-94.0) 07/16/22 06:09 MCH 32.4 pg (27.0-31.0) H 02/03/22 06:09 MCHC 35.2 g/dL (32.0-36.0) 02/03/22 06:09 RDW 12.4 % (12.0-15.0) 02/03/22 06:09 Plt Count 143 10^3/uL (130-450) 02/03/22 06:09 MPV 10.7 fL (7.4-11.4) 02/03/22 06:09 Neut # (Auto) Not Reportable 02/03/22 06:09 Lymph # (Auto) Not Reportable 02/03/22 06:09 [place] # (Auto) Not Reportable 02/03/22 06:09 Eos # (Auto) Not Reportable 02/03/22 06:09 Baso # (Auto) Not Reportable 02/03/22 06:09 Absolute Nucleated RBC Not Reportable 02/03/22 06:09 Total Counted 100 02/03/22 06:09 Band Neuts % (Manual) 13 % (0-10) H 02/03/22 06:09 Abnorm Lymph % (Manual) 0 % 02/03/22 06:09 Metamyelocytes % 6 % (-0) H 02/02/22 10:45 Myelocytes % 2 % (-0) H 02/02/22 10:45 Nucleated RBC % Not Reportable 02/03/22 06:09 Neutrophils # (Manual) 13.6 10^3/uL (1.5-6.6) H 02/03/22 06:09 Lymphocytes # (Manual) 0.1 10^3/uL (1.5-3.5) L 02/03/22 06:09 Monocytes # (Manual) 0.4 10^3/uL (0.0-1.0) 02/03/22 06:09 Eosinophils # (Manual) 0.0 10^3/uL (0-0.7) 02/03/22 06:09 Basophils # (Manual) 0.0 10^3/uL (0-0.1) 02/03/22 06:09 Differential Comment MANUAL DIFFERENTIAL 02/03/22 06:09 Manual Slide Review Indicated 02/02/22 10:45 WBC Morphology 2+ VACUOLATION (NORMAL) 02/02/22 10:45 Platelet Estimate NORMAL (130-450,000) (NORMAL) 02/03/22 06:09 Platelet Morphology PLATELET CLUMPING (NORMAL) 02/02/22 10:45 RBC Morph Micro Appear NORMAL APPEARANCE (NORMAL) 02/03/22 06:09 Sodium 136 mmol/L (135-145) 02/03/22 06:09 Potassium 4.3 mmol/L (3.5-5.0) 02/03/22 06:09 Chloride 106 mmol/L (101-111) 02/03/22 06:09 Carbon Dioxide 23 mmol/L (21-32) 02/03/22 06:09 Anion Gap 7.0 (6-13) 02/03/22 06:09 BUN 21 mg/dL (6-20) H 02/03/22 06:09 Creatinine 1.1 mg/dL (0.6-1.2) 02/03/22 06:09 Estimated GFR (MDRD) 69 (>89) L 02/03/22 06:09 Glucose 153 mg/dL (70-100) H 02/03/22 06:09 Lactic Acid 2.1 mmol/L (0.5-2.2) 02/03/22 09:24 Calcium 8.2 mg/dL (8.5-10.3) L 02/03/22 06:09 Phosphorus 2.6 mg/dL (2.5-4.6) 02/02/22 18:41 Magnesium 1.5 mg/dL (1.7-2.8) L 02/03/22 06:09 Total Bilirubin 1.7 mg/dL (0.2-1.0) H 02/02/22 10:45 AST 80 IU/L (10-42) H 02/02/22 10:45 ALT 46 IU/L (10-60) 02/02/22 10:45 Alkaline Phosphatase 186 IU/L (42-121) H 02/02/22 10:45 Total Protein 6.7 g/dL (6.7-8.2) 02/02/22 10:45 Albumin 3.5 g/dL (3.2-5.5) 02/02/22 10:45 Globulin 3.2 g/dL (2.1-4.2) 02/02/22 10:45 Albumin/Globulin Ratio 1.1 (1.0-2.2) 02/02/22 10:45 Procalcitonin 142.912 ng/mL (<0.5) H* 02/02/22 10:45 Urine Color BROWN 02/02/22 10:37 Urine Clarity CLOUDY (CLEAR) 02/02/22 10:37 Urine pH 5.5 PH (5.0-7.5) 02/02/22 10:37 Ur Specific [place] 1.025 (1.002-1.030) 02/02/22 10:37 Urine Protein >=300 mg/dL (NEGATIVE) H 02/02/22 10:37 Urine Glucose (UA) NEGATIVE mg/dL (NEGATIVE) 02/02/22 10:37 Urine Ketones NEGATIVE mg/dL (NEGATIVE) 02/02/22 10:37 Urine Occult Blood LARGE (NEGATIVE) H 02/02/22 10:37 Urine Nitrite NEGATIVE (NEGATIVE) 02/02/22 10:37 Urine Bilirubin NEGATIVE (NEGATIVE) 02/02/22 10:37 Urine Urobilinogen 1 (NORMAL) E.U./dL (NORMAL) 02/02/22 10:37 Ur Leukocyte Esterase MODERATE (NEGATIVE) H 02/02/22 10:37 Urine RBC TNTC /HPF (0-5) H 02/02/22 10:37 Urine WBC >25 /HPF (0-3) H 02/02/22 10:37 Urine WBC Clumps PRESENT 02/02/22 10:37 Ur Epithelial Cells MANY Transitional /HPF (<= Few) HMANY Renal Tubular /HPF (<= Few) H 02/02/22 10:37 Ur Epithelial Cells MANY Transitional /HPF (<= Few) HMANY Renal Tubular /HPF (<= Few) H 02/02/22 10:37 Ur Squamous Epith Cells FEW Squamous (<= Few) 02/02/22 10:37 Urine Bacteria Many /HPF (None Seen) H 02/02/22 10:37 Urine Culture Comments INDICATED 02/02/22 10:37 Nasal Adenovirus (PCR) NOT DETECTED 02/02/22 11:25 Nasal B. parapertussis DNA (PCR) NOT DETECTED 02/02/22 11:25 Nasal Coronavir 229E PCR NOT DETECTED 02/02/22 11:25 Nasal Coronavir HKU1 PCR NOT DETECTED 02/02/22 11:25 Nasal Coronavir NL63 PCR NOT DETECTED 02/02/22 11:25 Nasal Coronavir OC43 PCR NOT DETECTED 02/02/22 11:25 Nasal Enterovir/Rhinovir PCR NOT DETECTED 02/02/22 11:25 Nasal Influenza B PCR NOT DETECTED 02/02/22 11:25 Nasal Influenza A PCR NOT DETECTED 02/02/22 11:25 Nasal Parainfluen 1 PCR NOT DETECTED 02/02/22 11:25 Nasal Parainfluen 2 PCR NOT DETECTED 02/02/22 11:25 Nasal Parainfluen 3 PCR NOT DETECTED 02/02/22 11:25 Nasal Parainfluen 4 PCR NOT DETECTED 02/02/22 11:25 Nasal RSV (PCR) NOT DETECTED 02/02/22 11:25 Nasal B.pertussis DNA PCR NOT DETECTED 02/02/22 11:25 Nasal C.pneumoniae (PCR) NOT DETECTED 02/02/22 11:25 Jordon Human Metapneumo PCR NOT DETECTED 02/02/22 11:25 Nasal M.pneumoniae (PCR) NOT DETECTED 02/02/22 11:25 Nasal SARS-CoV-2 (PCR) NOT DETECTED 02/02/22 11:25 Sepsis Event Note (H) - Evaluation Current Stage of Sepsis: Sepsis Possible source of Sepsis: positive: Genitourinary - Sepsis Criteria Sepsis Criteria: Recorded Temperature greater than 38.3C or Less than 36C, WBC count greater than 10% bands, Metabolic: lactate > 2 mmol/L
[2022-02-03] MEDS: traZODone 50 MG TABLET PO SCH (20:48)
[2022-02-04] MEDS: SODIUM CHLORIDE 0.9% 1,000 ML IV SCH (05:23)
[2022-02-04] MEDS: LEVOTHYROXINE 75 MCG TABLET PO SCH (05:23)
[2022-02-04] MEDS: HYDROCORTISONE SUCCINATE 100 MG/2 ML VIAL IVP SCH ×2 (05:24→14:06)
[2022-02-04 06:55] LABS: BASOPHILS % (AUTO) 0.1 %; HCT - HEMATOCRIT 32.7 % (42.0-52.0); HGB - HEMOGLOBIN 11.7 g/dL (14.0-18.0); LYMPHOCYTES # (AUTO) 0.7 10^3/uL (1.5-3.5); LYMPHOCYTES % (AUTO) 5.5 %; MEAN CORPUSCULAR HEMOGLOBIN 33.1 pg (27.0-31.0); MEAN CORPUSCULAR HGB CONC 35.8 g/dL (32.0-36.0); MEAN CORPUSCULAR VOLUME 92.4 fL (80.0-94.0); MEAN PLATELET VOLUME 11.4 fL (7.4-11.4); MONOCYTES % (AUTO) 8.2 %; NEUTROPHILS # (AUTO) 10.6 10^3/uL (1.5-6.6); NEUTROPHILS % (AUTO) 85.5 %; PLT - PLATELET COUNT 158 10^3/uL (130-450); RED BLOOD COUNT 3.54 10^6/uL (4.70-6.10); RED CELL DISTRIBUTION WIDTH 12.4 % (12.0-15.0); WHITE BLOOD COUNT 12.4 x10^3/uL (4.8-10.8)
[2022-02-04 07:03] LABS: CALCIUM 8.3 mg/dL (8.5-10.3); CREATININE 0.9 mg/dL (0.6-1.2)
[2022-02-04] MEDS: SOTALOL 80 MG TABLET PO SCH ×2 (09:22→20:06)
[2022-02-04] MEDS: cefTRIAXone 1 GM in SODIUM CHLORIDE 0.9% MINIBAG 100 ML IV SCH (09:24)
[2022-02-04] MEDS: GABAPENTIN 300 MG CAPSULE PO SCH ×2 (09:24→20:05)
[2022-02-04] MEDS: ENOXAPARIN 40 MG/0.4 ML SYRINGE SUBQ SCH (09:24)
[2022-02-04] MEDS: SODIUM CHLORIDE FLUSH 0.9% 10 ML SYRINGE IVP SCH ×2 (09:25→17:35)
[2022-02-04] MEDS ORDERED: cefTRIAXone 1 GM in SODIUM CHLORIDE 0.9% MINIBAG 100 ML IV ONE (10:30)
[2022-02-04] MEDS: SODIUM CHLORIDE FLUSH 0.9% 10 ML SYRINGE IVP PRN (14:06)
--- NOTE | 2022-02-04 15:06 | PROVIDER PROGRESS NOTE ---
Assessment/Plan - Problem List (1) E coli bacteremia Assessment/Plan: The patient's urine cx turned pos for GNeg and then both urine and blood cultures are growing E coli, which is stewart sensitive. This was the cause for his sepsis. Will increase the Ceftriaxone from 1gm iv daily to 2gm iv daily. Will re-draw 2 sets of blood cx and assure they are neg with no growth. (2) Complicated UTI (urinary tract infection) Conclusion/Plan: He is more alert today and able to give a detailed history and is at bedside filling in details: He had a tooth abscess and required IV antibiotics about 2 months ago. He then developed diarrhea. There was brief blood in the diarrhea which stopped and he sought no medical attention for it. He has polyps that need to be removed with yearly colonoscopy and he thought it was a bleeding polyp. 1 week ago he developed hematuria with cloudy urine, plus nausea & vomiting, rigors, fevers and chills. He presented to the ER several days into all of these symptoms. CT of the abdomen/pelvis showed pericystic stranding consistent with cystitis. Both urine and blood cultures are growing E coli, which is stewart sensitive. Presumably the diarrhea caused the cystitis in this male patient, because no anatomic pathology was seen on CT abdomen/pelvis (like stons) and he does not have prostate abnormality. Rocephin 1 g IV started in the ED. We will increase Rocephin to 2 g IV daily. Fluid resuscitation was given for 2 days (3) Acute kidney injury Conclusion/Plan: Likely secondary to sepsis from UTI. Creatinine was 2.4 with estimated GFR of 28. Patient received a total of 3-1/2 L of IV fluid in the ED. IV hydration was with normal saline for 2 days, is stopping today, due to ankle edema Avoid nephrotoxins Follow BMP daily (4) Sarcoidosis Conclusion/Plan: Affecting pulmonary and cardiac systems. The details of those pathologies were not known. Pt was too groggy to give details, until today. Patient is normally on azathioprine which has been held while treating sepsis. (5) Chronic systolic heart failure Conclusion/Plan: The patient was not awake enough to give details of this history. 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 He has a single lead defibrillator. His last LVEF was 48%, up from 33% in the past. This is the reason that he is on B-brandan, spironolactone and torsemide plus potassium Today he noticed ankle edema and is requesting that his IV fluids be stopped and questions why the torsemide was not yet restarted. IV fluids were stopped today. Will not yet start the torsemide today because of his sepsis and GABY needing IV fluid resuscitation. Will allow his fluids to equilibrate. This was explained to the patient, and at bedside, and they understand. Will allow his fluids to equilibrate. This was explained to the patient, at bedside and they understand. Will likely resume the diuretic tomorrow. (6) Cardiac arrhythmia Conclusion/Plan: The details of of what arrhythmia he had are not known. Resumed patient's sotalol 120 mg p.o. twice daily starting today (7) Hypothyroidism Conclusion/Plan: On Synthroid 150 mcg p.o. daily. (8) Postherpetic neuralgia Conclusion/Plan: Will resume Gabapentin 300 mg in the morning and 600 mg at night. (9) Insomnia Conclusion/Plan: Ativan 0.5 mg p.o. every night as needed was ordered, on top of his usual Trazadone at hs. This did not work he reports. He has requested Ativan 1 mg hs prn, will order that. Will also order not to awaken for VS check. (10) Sepsis Resolved. Sepsis was from a UTI/ cystitis and bacteremia. The fever, elevated WBC and altered mental status have improved and sepsis has resolved. - Current Meds Current Meds: Current Medications Generic Name Dose Route Start Last Admin Trade Name Freq PRN Reason Stop Dose Admin Acetaminophen 650 mg 02/02/22 18:25 02/03/22 19:36 Acetaminophen 325 Mg Tablet PO 650 mg Q4HR PRN Administration Pain 1 to 4, or Fever Enoxaparin Sodium 40 mg 02/03/22 09:00 02/04/22 09:24 Enoxaparin 40 Mg/0.4 Ml Syringe SUBQ 40 mg DAILY MONICA Administration Gabapentin 300 mg 02/03/22 09:00 02/04/22 09:24 Gabapentin 300 Mg Capsule PO 300 mg DAILY MONICA Administration Gabapentin 600 mg 02/02/22 21:00 02/03/22 19:37 Gabapentin 300 Mg Capsule PO 600 mg QPM MONICA Administration Hydrocortisone Sodium Succinate 100 mg 02/03/22 08:00 02/04/22 14:06 Hydrocortisone Succinate 100 Mg/2 Ml Vial IVP 100 mg TID MONICA Administration Levothyroxine Sodium 150 mcg 02/03/22 07:00 02/04/22 05:23 Levothyroxine 75 Mcg Tablet PO 150 mcg QDAC MONICA Administration Lorazepam 0.5 mg 02/02/22 20:09 02/02/22 20:54 Lorazepam 0.5 Mg Tablet PO 0.5 mg QPM PRN Administration Insomnia Ondansetron HCl 4 mg 02/02/22 18:25 02/03/22 16:06 Ondansetron 4 Mg/2 Ml Vial IVP 4 mg Q6HR PRN Administration Nausea / Vomiting Sodium Chloride 10 ml 02/02/22 18:25 02/04/22 14:06 Sodium Chloride Flush 0.9% 10 Ml Syringe IVP 10 ml PRN PRN Administration NEEDED PER PROVIDER ORDERS Sodium Chloride 10 ml 02/03/22 01:00 02/04/22 09:25 Sodium Chloride Flush 0.9% 10 Ml Syringe IVP Not Given 0100,0900,1700 MONICA Sotalol HCl 120 mg 02/03/22 09:00 02/04/22 09:22 Sotalol 80 Mg Tablet PO 120 mg BID MONICA Administration Trazodone HCl 200 mg 02/03/22 21:00 02/03/22 20:48 Trazodone 50 Mg Tablet PO 200 mg QPM MONICA Administration - Lab Result Fish Bone Diagrams: 02/04/22 06:14 02/04/22 06:14 - Additional Planning My Orders: My Active Orders 02/04/22 11:12 CULTURE, BLOOD #1 [RM] Stat CULTURE, BLOOD #2 [RM] Stat 02/05/22 05:00 BMP - BASIC METABOLIC PANEL [CHEM] DAILYLAB CBC - COMP BLD CT W/AUTO DIFF [HEME] DAILYLAB 02/05/22 09:00 cefTRIAXone [Rocephin] 2 gm Sodium Chloride 0.9% Minibag [Normal Saline 0.9% Minibag] 100 ml IV DAILY 02/06/22 05:00 CBC - COMP BLD CT W/AUTO DIFF [HEME] DAILYLAB Subjective - Subjective Patient Reports: Feeling Better, Other (Has new edema and is concerned that he has not been on his Torsemide. Still cannot sleep.) Objective Vital Signs: Vital Signs - 24 hr 07/02/03/22 02/03/22 18:00 19:32 23:32 Temperature 36.4 C L 36.6 C 36.3 C L Heart Rate [ 74 74 75 Brachial] Respiratory 17 19 20 Rate Blood Pressure 134/84 H 138/90 H 115/76 [Left Brachial artery] O2 Saturation 99 97 97 02/04/22 02/04/22 02/04/22 02:56 05:20 07:34 Temperature 36.5 C 36.4 C L 36.8 C Heart Rate [ 74 75 75 Brachial] Respiratory 16 16 16 Rate Blood Pressure 116/79 103/80 127/85 H [Left Brachial artery] O2 Saturation 97 97 97 02/04/22 02/04/22 12:32 14:49 Temperature 36.7 C 36.8 C Heart Rate [ 75 74 Brachial] Respiratory 20 18 Rate Blood Pressure 124/86 H 131/89 H [Left Brachial artery] O2 Saturation 99 99 Oxygen O2 Source Room air I&O (Last 24 Hrs): Intake and Output Totals x24h 02/02/22 02/03/22 02/04/22 23:59 23:59 23:59 Intake Total 3649.41 4894.5 2547.5 Output Total 575 1075 375 Balance 3074.41 3819.5 2172.5 General: Alert, Oriented x3 HEENT: EOMI, Mucous membr. moist/pink Neck: Supple, No JVD Neuro: Alert, Non Focal Cardiovascular: Regular rate, No murmurs Respiratory: No respiratory distress, Breath sounds nml Abdomen: Normal bowel sounds, Soft Extremities: Other (1+ ankle edema) - Results Results: Laboratory Results WBC 12.4 x10^3/uL (4.8-10.8) H 02/04/22 06:14 RBC 3.54 10^6/uL (4.70-6.10) L 02/04/22 06:14 Hgb 11.7 g/dL (14.0-18.0) L 02/04/22 06:14 Hct 32.7 % (42.0-52.0) L 02/04/22 06:14 MCV 92.4 fL (80.0-94.0) 02/04/22 06:14 MCH 33.1 pg (27.0-31.0) H 02/04/22 06:14 MCHC 35.8 g/dL (32.0-36.0) 02/04/22 06:14 RDW 12.4 % (12.0-15.0) 02/04/22 06:14 Plt Count 158 10^3/uL (130-450) 02/04/22 06:14 MPV 11.4 fL (7.4-11.4) 02/04/22 06:14 Neut # (Auto) 10.6 10^3/uL (1.5-6.6) H 02/04/22 06:14 Lymph # (Auto) 0.7 10^3/uL (1.5-3.5) L 02/04/22 06:14 [place] # (Auto) 1.0 10^3/uL (0.0-1.0) 02/04/22 06:14 Eos # (Auto) 0.0 10^3/uL (0.0-0.7) 02/04/22 06:14 Baso # (Auto) 0.0 10^3/uL (0.0-0.1) 02/04/22 06:14 Absolute Nucleated RBC 0.00 x10^3/uL 02/04/22 06:14 Total Counted 100 02/03/22 06:09 Band Neuts % (Manual) 13 % (0-10) H 02/03/22 06:09 Abnorm Lymph % (Manual) 0 % 02/03/22 06:09 Metamyelocytes % 6 % (-0) H 02/02/22 10:45 Myelocytes % 2 % (-0) H 02/02/22 10:45 Nucleated RBC % 0.0 /100WBC 02/04/22 06:14 Neutrophils # (Manual) 13.6 10^3/uL (1.5-6.6) H 02/03/22 06:09 Lymphocytes # (Manual) 0.1 10^3/uL (1.5-3.5) L 02/03/22 06:09 Monocytes # (Manual) 0.4 10^3/uL (0.0-1.0) 02/03/22 06:09 Eosinophils # (Manual) 0.0 10^3/uL (0-0.7) 02/03/22 06:09 Basophils # (Manual) 0.0 10^3/uL (0-0.1) 02/03/22 06:09 Differential Comment MANUAL DIFFERENTIAL 02/03/22 06:09 Manual Slide Review Indicated 02/02/22 10:45 WBC Morphology 2+ VACUOLATION (NORMAL) 02/02/22 10:45 Platelet Estimate NORMAL (130-450,000) (NORMAL) 02/03/22 06:09 Platelet Morphology PLATELET CLUMPING (NORMAL) 02/02/22 10:45 RBC Morph Micro Appear NORMAL APPEARANCE (NORMAL) 02/03/22 06:09 Sodium 138 mmol/L (135-145) 02/04/22 06:14 Potassium 4.0 mmol/L (3.5-5.0) 02/04/22 06:14 Chloride 108 mmol/L (101-111) 02/04/22 06:14 Carbon Dioxide 20 mmol/L (21-32) L 02/04/22 06:14 Anion Gap 10.0 (6-13) 02/04/22 06:14 BUN 16 mg/dL (6-20) 02/04/22 06:14 Creatinine 0.9 mg/dL (0.6-1.2) 02/04/22 06:14 Estimated GFR (MDRD) 87 (>89) L 02/04/22 06:14 Glucose 118 mg/dL (70-100) H 02/04/22 06:14 Lactic Acid 2.1 mmol/L (0.5-2.2) 02/03/22 09:24 Calcium 8.3 mg/dL (8.5-10.3) L 02/04/22 06:14 Phosphorus 2.6 mg/dL (2.5-4.6) 02/02/22 18:41 Magnesium 1.5 mg/dL (1.7-2.8) L 02/03/22 06:09 Total Bilirubin 1.7 mg/dL (0.2-1.0) H 02/02/22 10:45 AST 80 IU/L (10-42) H 02/02/22 10:45 ALT 46 IU/L (10-60) 02/02/22 10:45 Alkaline Phosphatase 186 IU/L (42-121) H 02/02/22 10:45 Total Protein 6.7 g/dL (6.7-8.2) 02/02/22 10:45 Albumin 3.5 g/dL (3.2-5.5) 02/02/22 10:45 Globulin 3.2 g/dL (2.1-4.2) 02/02/22 10:45 Albumin/Globulin Ratio 1.1 (1.0-2.2) 02/02/22 10:45 Procalcitonin 142.912 ng/mL (<0.5) H* 02/02/22 10:45 Urine Color BROWN 02/02/22 10:37 Urine Clarity CLOUDY (CLEAR) 02/02/22 10:37 Urine pH 5.5 PH (5.0-7.5) 02/02/22 10:37 Ur Specific [place] 1.025 (1.002-1.030) 02/02/22 10:37 Urine Protein >=300 mg/dL (NEGATIVE) H 02/02/22 10:37 Urine Glucose (UA) NEGATIVE mg/dL (NEGATIVE) 02/02/22 10:37 Urine Ketones NEGATIVE mg/dL (NEGATIVE) 02/02/22 10:37 Urine Occult Blood LARGE (NEGATIVE) H 02/02/22 10:37 Urine Nitrite NEGATIVE (NEGATIVE) 02/02/22 10:37 Urine Bilirubin NEGATIVE (NEGATIVE) 02/02/22 10:37 Urine Urobilinogen 1 (NORMAL) E.U./dL (NORMAL) 02/02/22 10:37 Ur Leukocyte Esterase MODERATE (NEGATIVE) H 02/02/22 10:37 Urine RBC TNTC /HPF (0-5) H 02/02/22 10:37 Urine WBC >25 /HPF (0-3) H 02/02/22 10:37 Urine WBC Clumps PRESENT 02/02/22 10:37 Ur Epithelial Cells MANY Transitional /HPF (<= Few) HMANY Renal Tubular /HPF (<= Few) H 02/02/22 10:37 Ur Epithelial Cells MANY Transitional /HPF (<= Few) HMANY Renal Tubular /HPF (<= Few) H 02/02/22 10:37 Ur Squamous Epith Cells FEW Squamous (<= Few) 02/02/22 10:37 Urine Bacteria Many /HPF (None Seen) H 02/02/22 10:37 Urine Culture Comments INDICATED 02/02/22 10:37 Nasal Adenovirus (PCR) NOT DETECTED 02/02/22 11:25 Nasal B. parapertussis DNA (PCR) NOT DETECTED 02/02/22 11:25 Nasal Coronavir 229E PCR NOT DETECTED 02/02/22 11:25 Nasal Coronavir HKU1 PCR NOT DETECTED 02/02/22 11:25 Nasal Coronavir NL63 PCR NOT DETECTED 02/02/22 11:25 Nasal Coronavir OC43 PCR NOT DETECTED 02/02/22 11:25 Nasal Enterovir/Rhinovir PCR NOT DETECTED 02/02/22 11:25 Nasal Influenza B PCR NOT DETECTED 02/02/22 11:25 Nasal Influenza A PCR NOT DETECTED 02/02/22 11:25 Nasal Parainfluen 1 PCR NOT DETECTED 02/02/22 11:25 Nasal Parainfluen 2 PCR NOT DETECTED 02/02/22 11:25 Nasal Parainfluen 3 PCR NOT DETECTED 02/02/22 11:25 Nasal Parainfluen 4 PCR NOT DETECTED 02/02/22 11:25 Nasal RSV (PCR) NOT DETECTED 02/02/22 11:25 Nasal B.pertussis DNA PCR NOT DETECTED 02/02/22 11:25 Nasal C.pneumoniae (PCR) NOT DETECTED 02/02/22 11:25 Jordon Human Metapneumo PCR NOT DETECTED 02/02/22 11:25 Nasal M.pneumoniae (PCR) NOT DETECTED 02/02/22 11:25 Nasal SARS-CoV-2 (PCR) NOT DETECTED 02/02/22 11:25 Sepsis Event Note (H) - Evaluation Current Stage of Sepsis: Sepsis Possible source of Sepsis: positive: Genitourinary - Sepsis Criteria Sepsis Criteria: Recorded Temperature greater than 38.3C or Less than 36C, WBC count greater than 10% bands, Metabolic: lactate > 2 mmol/L
[2022-02-04] MEDS: ACETAMINOPHEN 325 MG TABLET PO PRN (17:51)
[2022-02-04] MEDS: LORazepam 0.5 MG TABLET PO PRN (20:06)
[2022-02-04] MEDS: traZODone 50 MG TABLET PO SCH (20:06)
[2022-02-05] MEDS: SODIUM CHLORIDE FLUSH 0.9% 10 ML SYRINGE IVP SCH ×3 (00:03→17:45)
[2022-02-05] MEDS: LEVOTHYROXINE 75 MCG TABLET PO SCH (05:52)
[2022-02-05] MEDS: SODIUM CHLORIDE FLUSH 0.9% 10 ML SYRINGE IVP PRN (05:54)
[2022-02-05 06:36] LABS: BASOPHILS % (AUTO) 0.1 %; EOSINOPHILS % (AUTO) 0.1 %; HGB - HEMOGLOBIN 12.2 g/dL (14.0-18.0); LYMPHOCYTES # (AUTO) 1.2 10^3/uL (1.5-3.5); LYMPHOCYTES % (AUTO) 12.6 %; MEAN CORPUSCULAR HEMOGLOBIN 32.5 pg (27.0-31.0); MEAN CORPUSCULAR HGB CONC 34.9 g/dL (32.0-36.0); MEAN CORPUSCULAR VOLUME 93.3 fL (80.0-94.0); MEAN PLATELET VOLUME 11.1 fL (7.4-11.4); MONOCYTES # (AUTO) 0.7 10^3/uL (0.0-1.0); MONOCYTES % (AUTO) 6.9 %; NEUTROPHILS # (AUTO) 7.5 10^3/uL (1.5-6.6); NEUTROPHILS % (AUTO) 79.7 %; NRBC ABSOLUTE COUNT (AUTO) 0.02 x10^3/uL; NUCLEATED RED BLOOD CELLS AUTO 0.2 /100WBC; PLT - PLATELET COUNT 166 10^3/uL (130-450); RED BLOOD COUNT 3.75 10^6/uL (4.70-6.10); RED CELL DISTRIBUTION WIDTH 12.5 % (12.0-15.0); WHITE BLOOD COUNT 9.4 x10^3/uL (4.8-10.8)
[2022-02-05 06:46] LABS: CREATININE 0.9 mg/dL (0.6-1.2)
[2022-02-05] MEDS: GABAPENTIN 300 MG CAPSULE PO SCH ×2 (09:22→21:25)
[2022-02-05] MEDS: ENOXAPARIN 40 MG/0.4 ML SYRINGE SUBQ SCH (09:22)
[2022-02-05] MEDS: cefTRIAXone 2 GM in SODIUM CHLORIDE 0.9% MINIBAG 100 ML IV SCH (09:23)
[2022-02-05] MEDS: SOTALOL 80 MG TABLET PO SCH ×2 (10:08→21:25)
[2022-02-05] MEDS ORDERED: NITROGLYCERIN SL 0.4 MG TABLET SL PRN (11:07)
[2022-02-05] MEDS: SPIRONOLACTONE 25 MG TABLET PO SCH (12:48)
[2022-02-05] MEDS: SACCHAROMYCES BOULARDII 250 MG CAPSULE PO SCH ×2 (12:48→17:45)
--- NOTE | 2022-02-05 13:18 | PROVIDER PROGRESS NOTE ---
Assessment/Plan - Problem List (1) E coli bacteremia Assessment/Plan: The patient's urine and blood cultures are growing E coli, which is stewart sensitive. This was the cause for his sepsis. We increased the Ceftriaxone from 1gm iv daily to 2gm iv daily. He had re-drawn 2 sets of blood cx yesterday, and we will await results at 48 hours (tomorrow), to assure they are neg with no growth. A 14 day course of treatment is planned. (2) Complicated UTI (urinary tract infection) Conclusion/Plan: He is more alert yesterday and today and able to give a detailed history, and was at bedside yesterday filling in details: He had a tooth abscess and required IV antibiotics about 1-2 months ago. He then developed diarrhea. There was brief blood in the diarrhea which stopped and he sought no medical attention for it. He has polyps that need to be removed with yearly colonoscopy and he thought it was a bleeding polyp. 1 week ago he developed hematuria with cloudy urine, plus nausea & vomiting, rigors, fevers and chills. He presented to the ER several days into all of these symptoms. CT of the abdomen/pelvis showed pericystic stranding consistent with cystitis. Both urine and blood cultures are growing E coli, which is stewart sensitive. Presumably the diarrhea caused the cystitis in this male patient, because no anatomic pathology was seen on CT abdomen/pelvis (like stones) and he does not have prostate abnormality. Rocephin 1 g IV started in the ED. We have increased the Rocephin to 2 g IV daily, as of yesterday. Fluid resuscitation was given for 2 days, stopped yesterday when he complained of new ankle edema. (3) Sarcoidosis Conclusion/Plan: This is affecting his pulmonary and cardiac systems. The details of those pathologies were not known at admission since the patient was too groggy to give details, until yesterday. Patient is normally on azathioprine which he stopped 2 days before admission and has been held while treating sepsis. (4) Chronic systolic heart failure Conclusion/Plan: The patient was not awake enough at admission to give details of this history. Yesterday it was learned that he is followed by a medical bill processor at [facility]. He has a defibrillator. His last LVEF was 48%, up from 33% in the past. This is the reason that he is on B-brandan, spironolactone and torsemide plus potassium Yesterday he noticed ankle edema and requested that his IV fluids be stopped and they were. Today his exam shows 3+ edema up to the groin. He is feeling "bloated" with no appetite. He now has anasarca, probably also intestinal wall edema creating the bloated feeling. We will resume his oral Torsemide and Spironolactone today, not iv diuresis as he has no rales and no resp distress. (5) Valve replacement Conclusion/Plan: According to the patient, when he had his previous defibrillator lead placed, the lead poked through a tricuspid valve leaflet, which made the tricuspid valve leak severely and he eventually needed open heart surgery for a tricuspid valve replacement (with a bioprosthetic valve) and a new defibrillator lead placement. (6) Cardiac arrhythmia Conclusion/Plan: The details of of what arrhythmia he had are not known. We resumed patient's sotalol 120 mg p.o. twice daily. He did not have an EKG at admission. An EKG was done today. The EKG shows a dual-chamber paced rhythm. Will stop his telemetry, he is stable. (7) Hypothyroidism Conclusion/Plan: On Synthroid 150 mcg p.o. daily. (8) Postherpetic neuralgia Conclusion/Plan: We have resumed his Gabapentin 300 mg in the morning and 600 mg at night. (9) Insomnia Conclusion/Plan: Ativan 0.5 mg p.o. every night as needed was ordered, on top of his usual Trazadone at hs. This did not work he reports. He has requested Ativan 1 mg hs prn. I order that and not to awaken for VS checks. (10) Sepsis Resolved. Sepsis was from a UTI/ cystitis and he has bacteremia. The fever, elevated WBC and altered mental status have improved and sepsis has resolved. (11) Acute kidney injury Conclusion/Plan: Resolved. Likely secondary to sepsis from UTI. Creatinine was 2.4 at admission with estimated GFR of 28>> 1.1 >> 0.9 Patient received a total of 3-1/2 L of IV fluid in the ED, the was on 150 cc/hr iv hydration. IV hydration was stopping yesterday due to ankle edema Will avoid nephrotoxins Following BMP daily - Current Meds Current Meds: Current Medications Generic Name Dose Route Start Last Admin Trade Name Freq PRN Reason Stop Dose Admin Acetaminophen 650 mg 02/02/22 18:25 02/04/22 17:51 Acetaminophen 325 Mg Tablet PO 650 mg Q4HR PRN Administration Pain 1 to 4, or Fever Enoxaparin Sodium 40 mg 02/03/22 09:00 02/05/22 09:22 Enoxaparin 40 Mg/0.4 Ml Syringe SUBQ 40 mg DAILY MONICA Administration Gabapentin 300 mg 02/03/22 09:00 02/05/22 09:22 Gabapentin 300 Mg Capsule PO 300 mg DAILY MONICA Administration Gabapentin 600 mg 02/02/22 21:00 02/04/22 20:05 Gabapentin 300 Mg Capsule PO 600 mg QPM MONICA Administration Ceftriaxone Sodium 2 gm/ 100 mls @ 200 mls/hr 02/05/22 09:00 02/05/22 10:00 Sodium Chloride IV Infused DAILY MONICA Infusion Levothyroxine Sodium 150 mcg 02/03/22 07:00 02/05/22 05:52 Levothyroxine 75 Mcg Tablet PO 150 mcg QDAC MONICA Administration Lorazepam 1 mg 02/04/22 18:25 02/04/22 20:06 Lorazepam 0.5 Mg Tablet PO 1 mg QPM PRN Administration Insomnia Ondansetron HCl 4 mg 02/02/22 18:25 02/03/22 16:06 Ondansetron 4 Mg/2 Ml Vial IVP 4 mg Q6HR PRN Administration Nausea / Vomiting Saccharomyces Boulardii 250 mg 02/05/22 12:00 02/05/22 12:48 Saccharomyces Boulardii 250 Mg Capsule PO 250 mg BIDWM MONICA Administration Sodium Chloride 10 ml 02/02/22 18:25 02/05/22 05:54 Sodium Chloride Flush 0.9% 10 Ml Syringe IVP 10 ml PRN PRN Administration NEEDED PER PROVIDER ORDERS Sodium Chloride 10 ml 02/03/22 01:00 02/05/22 09:22 Sodium Chloride Flush 0.9% 10 Ml Syringe IVP 10 ml 0100,0900,1700 MONICA Administration Sotalol HCl 120 mg 02/03/22 09:00 02/05/22 10:08 Sotalol 80 Mg Tablet PO 120 mg BID MONICA Administration Spironolactone 25 mg 02/05/22 12:00 02/05/22 12:48 Spironolactone 25 Mg Tablet PO 25 mg DAILY MONICA Administration Trazodone HCl 200 mg 02/03/22 21:00 02/04/22 20:06 Trazodone 50 Mg Tablet PO 200 mg QPM MONICA Administration - Lab Result Fish Bone Diagrams: 02/05/22 06:03 02/05/22 06:03 - Additional Planning My Orders: My Active Orders 02/04/22 18:25 LORazepam [Ativan] 1 mg PO QPM PRN 02/04/22 20:14 Vital Signs- Do Not Awaken For [RC] HS 02/05/22 09:00 cefTRIAXone [Rocephin] 2 gm Sodium Chloride 0.9% Minibag [Normal Saline 0.9% Minibag] 100 ml IV DAILY 02/05/22 11:04 EKG - Electrocardiogram [RC] .ONCE 02/05/22 11:07 Nitroglycerin [Nitrostat] 0.4 mg SL Q5M PRN 02/05/22 Lunch DIET [Low Sodium Diet] [DIET] 02/05/22 12:00 Saccharomyces Boulardii [Florastor] 250 mg PO BIDWM Spironolactone [Aldactone] 25 mg PO DAILY 02/05/22 14:00 Torsemide 20 mg PO BIDDIURETIC 02/05/22 17:00 Potassium Chloride [K-Dur] 20 meq PO BIDWM 02/06/22 05:00 CBC - COMP BLD CT W/AUTO DIFF [HEME] DAILYLAB Subjective - Subjective Patient Reports: Resting Comfortably, Other (Got better sleep since he was not awoken for vital sign checks through the night. He notices much worse edema up his legs today. He feels bloated and has no appetite.) Objective Vital Signs: Vital Signs - 24 hr 02/04/22 02/04/22 02/04/22 14:49 18:09 20:57 Temperature 36.8 C 36.5 C 36.8 C Heart Rate [ 74 75 75 Brachial] Respiratory 18 18 17 Rate Blood Pressure 131/89 H 139/90 H 133/91 H [Left Brachial artery] Blood Pressure [Right Brachial artery] O2 Saturation 99 100 97 02/05/22 02/05/22 02/05/22 05:57 08:41 09:26 Temperature 36.3 C L 36.9 C Heart Rate [ 76 75 77 Brachial] Respiratory 16 18 Rate Blood Pressure 113/79 [Left Brachial artery] Blood Pressure 133/90 H 127/78 [Right Brachial artery] O2 Saturation 99 96 02/05/22 12:51 Temperature 36.9 C Heart Rate [ 76 Brachial] Respiratory 18 Rate Blood Pressure [Left Brachial artery] Blood Pressure 130/79 [Right Brachial artery] O2 Saturation 100 Oxygen O2 Source Room air I&O (Last 24 Hrs): Intake and Output Totals x24h 02/03/22 02/04/22 02/05/22 23:59 23:59 23:59 Intake Total 4894.5 3087.5 340 Output Total 1075 475 Balance 3819.5 2612.5 340 General: Alert, Oriented x3, No acute distress HEENT: Atraumatic, Mucous membr. moist/pink Neck: Supple, No JVD Neuro: Alert, Non Focal Cardiovascular: Regular rate, No murmurs Respiratory: No respiratory distress, Breath sounds nml Abdomen: Normal bowel sounds, Soft Extremities: Other (3+ pitting edema to his groins, bilat, and up on his lower abd wall.) - Results Results: Laboratory Results WBC 9.4 x10^3/uL (4.8-10.8) 02/05/22 06:03 RBC 3.75 10^6/uL (4.70-6.10) L 02/05/22 06:03 Hgb 12.2 g/dL (14.0-18.0) L 02/05/22 06:03 Hct 35.0 % (42.0-52.0) L 02/05/22 06:03 MCV 93.3 fL (80.0-94.0) 02/05/22 06:03 MCH 32.5 pg (27.0-31.0) H 02/05/22 06:03 MCHC 34.9 g/dL (32.0-36.0) 02/05/22 06:03 RDW 12.5 % (12.0-15.0) 02/05/22 06:03 Plt Count 166 10^3/uL (130-450) 02/05/22 06:03 MPV 11.1 fL (7.4-11.4) 02/05/22 06:03 Neut # (Auto) 7.5 10^3/uL (1.5-6.6) H 02/05/22 06:03 Lymph # (Auto) 1.2 10^3/uL (1.5-3.5) L 02/05/22 06:03 [place] # (Auto) 0.7 10^3/uL (0.0-1.0) 02/05/22 06:03 Eos # (Auto) 0.0 10^3/uL (0.0-0.7) 02/05/22 06:03 Baso # (Auto) 0.0 10^3/uL (0.0-0.1) 02/05/22 06:03 Absolute Nucleated RBC 0.02 x10^3/uL 02/05/22 06:03 Total Counted 100 02/03/22 06:09 Band Neuts % (Manual) 13 % (0-10) H 02/03/22 06:09 Abnorm Lymph % (Manual) 0 % 02/03/22 06:09 Metamyelocytes % 6 % (-0) H 02/02/22 10:45 Myelocytes % 2 % (-0) H 02/02/22 10:45 Nucleated RBC % 0.2 /100WBC 02/05/22 06:03 Neutrophils # (Manual) 13.6 10^3/uL (1.5-6.6) H 02/03/22 06:09 Lymphocytes # (Manual) 0.1 10^3/uL (1.5-3.5) L 02/03/22 06:09 Monocytes # (Manual) 0.4 10^3/uL (0.0-1.0) 02/03/22 06:09 Eosinophils # (Manual) 0.0 10^3/uL (0-0.7) 02/03/22 06:09 Basophils # (Manual) 0.0 10^3/uL (0-0.1) 02/03/22 06:09 Differential Comment MANUAL DIFFERENTIAL 02/03/22 06:09 Manual Slide Review Indicated 02/02/22 10:45 WBC Morphology 2+ VACUOLATION (NORMAL) 02/02/22 10:45 Platelet Estimate NORMAL (130-450,000) (NORMAL) 02/03/22 06:09 Platelet Morphology PLATELET CLUMPING (NORMAL) 02/02/22 10:45 RBC Morph Micro Appear NORMAL APPEARANCE (NORMAL) 02/03/22 06:09 Sodium 138 mmol/L (135-145) 02/05/22 06:03 Potassium 4.0 mmol/L (3.5-5.0) 02/05/22 06:03 Chloride 107 mmol/L (101-111) 02/05/22 06:03 Carbon Dioxide 23 mmol/L (21-32) 02/05/22 06:03 Anion Gap 8.0 (6-13) 02/05/22 06:03 BUN 16 mg/dL (6-20) 02/05/22 06:03 Creatinine 0.9 mg/dL (0.6-1.2) 02/05/22 06:03 Estimated GFR (MDRD) 87 (>89) L 02/05/22 06:03 Glucose 82 mg/dL (70-100) 02/05/22 06:03 Lactic Acid 2.1 mmol/L (0.5-2.2) 02/03/22 09:24 Calcium 9.0 mg/dL (8.5-10.3) 02/05/22 06:03 Phosphorus 2.6 mg/dL (2.5-4.6) 02/02/22 18:41 Magnesium 2.0 mg/dL (1.7-2.8) 02/05/22 06:03 Total Bilirubin 1.7 mg/dL (0.2-1.0) H 02/02/22 10:45 AST 80 IU/L (10-42) H 02/02/22 10:45 ALT 46 IU/L (10-60) 02/02/22 10:45 Alkaline Phosphatase 186 IU/L (42-121) H 02/02/22 10:45 Total Protein 6.7 g/dL (6.7-8.2) 02/02/22 10:45 Albumin 3.5 g/dL (3.2-5.5) 02/02/22 10:45 Globulin 3.2 g/dL (2.1-4.2) 02/02/22 10:45 Albumin/Globulin Ratio 1.1 (1.0-2.2) 02/02/22 10:45 Procalcitonin 142.912 ng/mL (<0.5) H* 02/02/22 10:45 Urine Color BROWN 02/02/22 10:37 Urine Clarity CLOUDY (CLEAR) 02/02/22 10:37 Urine pH 5.5 PH (5.0-7.5) 02/02/22 10:37 Ur Specific [place] 1.025 (1.002-1.030) 02/02/22 10:37 Urine Protein >=300 mg/dL (NEGATIVE) H 02/02/22 10:37 Urine Glucose (UA) NEGATIVE mg/dL (NEGATIVE) 02/02/22 10:37 Urine Ketones NEGATIVE mg/dL (NEGATIVE) 02/02/22 10:37 Urine Occult Blood LARGE (NEGATIVE) H 02/02/22 10:37 Urine Nitrite NEGATIVE (NEGATIVE) 02/02/22 10:37 Urine Bilirubin NEGATIVE (NEGATIVE) 02/02/22 10:37 Urine Urobilinogen 1 (NORMAL) E.U./dL (NORMAL) 02/02/22 10:37 Ur Leukocyte Esterase MODERATE (NEGATIVE) H 02/02/22 10:37 Urine RBC TNTC /HPF (0-5) H 02/02/22 10:37 Urine WBC >25 /HPF (0-3) H 02/02/22 10:37 Urine WBC Clumps PRESENT 02/02/22 10:37 Ur Epithelial Cells MANY Transitional /HPF (<= Few) HMANY Renal Tubular /HPF (<= Few) H 02/02/22 10:37 Ur Epithelial Cells MANY Transitional /HPF (<= Few) HMANY Renal Tubular /HPF (<= Few) H 02/02/22 10:37 Ur Squamous Epith Cells FEW Squamous (<= Few) 02/02/22 10:37 Urine Bacteria Many /HPF (None Seen) H 02/02/22 10:37 Urine Culture Comments INDICATED 02/02/22 10:37 Nasal Adenovirus (PCR) NOT DETECTED 02/02/22 11:25 Nasal B. parapertussis DNA (PCR) NOT DETECTED 02/02/22 11:25 Nasal Coronavir 229E PCR NOT DETECTED 02/02/22 11:25 Nasal Coronavir HKU1 PCR NOT DETECTED 02/02/22 11:25 Nasal Coronavir NL63 PCR NOT DETECTED 02/02/22 11:25 Nasal Coronavir OC43 PCR NOT DETECTED 02/02/22 11:25 Nasal Enterovir/Rhinovir PCR NOT DETECTED 02/02/22 11:25 Nasal Influenza B PCR NOT DETECTED 02/02/22 11:25 Nasal Influenza A PCR NOT DETECTED 02/02/22 11:25 Nasal Parainfluen 1 PCR NOT DETECTED 02/02/22 11:25 Nasal Parainfluen 2 PCR NOT DETECTED 02/02/22 11:25 Nasal Parainfluen 3 PCR NOT DETECTED 02/02/22 11:25 Nasal Parainfluen 4 PCR NOT DETECTED 02/02/22 11:25 Nasal RSV (PCR) NOT DETECTED 02/02/22 11:25 Nasal B.pertussis DNA PCR NOT DETECTED 02/02/22 11:25 Nasal C.pneumoniae (PCR) NOT DETECTED 02/02/22 11:25 Jordon Human Metapneumo PCR NOT DETECTED 02/02/22 11:25 Nasal M.pneumoniae (PCR) NOT DETECTED 02/02/22 11:25 Nasal SARS-CoV-2 (PCR) NOT DETECTED 02/02/22 11:25 Sepsis Event Note (H) - Evaluation Current Stage of Sepsis: Sepsis Possible source of Sepsis: positive: Genitourinary - Sepsis Criteria Sepsis Criteria: Recorded Temperature greater than 38.3C or Less than 36C, WBC count greater than 10% bands, Metabolic: lactate > 2 mmol/L
[2022-02-05] MEDS: TORSEMIDE 20 MG TABLET PO SCH (14:28)
[2022-02-05] MEDS: ONDANSETRON 4 MG/2 ML VIAL IVP PRN (16:22)
[2022-02-05] MEDS: POTASSIUM CHLORIDE 20 MEQ TABLET PO SCH (17:45)
[2022-02-05] MEDS: traZODone 50 MG TABLET PO SCH (21:25)
[2022-02-05] MEDS: LORazepam 0.5 MG TABLET PO PRN (21:28)
[2022-02-06] MEDS: SODIUM CHLORIDE FLUSH 0.9% 10 ML SYRINGE IVP SCH ×3 (06:07→17:15)
[2022-02-06] MEDS: LEVOTHYROXINE 75 MCG TABLET PO SCH (06:26)
[2022-02-06] MEDS: TORSEMIDE 20 MG TABLET PO SCH (06:26)
[2022-02-06] MEDS: SODIUM CHLORIDE FLUSH 0.9% 10 ML SYRINGE IVP PRN ×2 (06:27→09:05)
[2022-02-06 06:34] LABS: BASOPHILS % (AUTO) 0.2 %; EOSINOPHILS # (AUTO) 0.1 10^3/uL (0.0-0.7); EOSINOPHILS % (AUTO) 1.4 %; HCT - HEMATOCRIT 33.6 % (42.0-52.0); HGB - HEMOGLOBIN 12.2 g/dL (14.0-18.0); LYMPHOCYTES # (AUTO) 1.3 10^3/uL (1.5-3.5); LYMPHOCYTES % (AUTO) 22.4 %; MEAN CORPUSCULAR HEMOGLOBIN 32.5 pg (27.0-31.0); MEAN CORPUSCULAR HGB CONC 36.3 g/dL (32.0-36.0); MEAN CORPUSCULAR VOLUME 89.6 fL (80.0-94.0); MEAN PLATELET VOLUME 10.4 fL (7.4-11.4); MONOCYTES # (AUTO) 0.6 10^3/uL (0.0-1.0); MONOCYTES % (AUTO) 10.3 %; NEUTROPHILS # (AUTO) 3.7 10^3/uL (1.5-6.6); NEUTROPHILS % (AUTO) 63.8 %; PLT - PLATELET COUNT 154 10^3/uL (130-450); RED BLOOD COUNT 3.75 10^6/uL (4.70-6.10); RED CELL DISTRIBUTION WIDTH 12.2 % (12.0-15.0); WHITE BLOOD COUNT 5.8 x10^3/uL (4.8-10.8)
[2022-02-06] MEDS: ENOXAPARIN 40 MG/0.4 ML SYRINGE SUBQ SCH (08:56)
[2022-02-06] MEDS: POTASSIUM CHLORIDE 20 MEQ TABLET PO SCH ×2 (08:56→17:14)
[2022-02-06] MEDS: GABAPENTIN 300 MG CAPSULE PO SCH ×2 (08:56→20:54)
[2022-02-06] MEDS: SACCHAROMYCES BOULARDII 250 MG CAPSULE PO SCH ×2 (08:56→17:15)
[2022-02-06] MEDS: SPIRONOLACTONE 25 MG TABLET PO SCH (08:57)
[2022-02-06] MEDS: SOTALOL 80 MG TABLET PO SCH ×2 (08:58→20:54)
[2022-02-06] MEDS: cefTRIAXone 2 GM in SODIUM CHLORIDE 0.9% MINIBAG 100 ML IV SCH (09:04)
[2022-02-06] MEDS: ACETAMINOPHEN 325 MG TABLET PO PRN ×2 (09:25→16:11)
[2022-02-06 11:46] LABS: POTASSIUM 3.7 mmol/L (3.5-5.0)
--- NOTE | 2022-02-06 17:13 | PROVIDER PROGRESS NOTE ---
Assessment/Plan - Problem List (1) E coli bacteremia Assessment/Plan: The patient's urine and blood cultures are growing E coli, which is stewart sensitive. This was the cause for his sepsis. We increased the Ceftriaxone from 1gm iv daily to 2gm iv daily. He had re-drawn 2 sets of blood cultures 02/04, now with no growth for 48 hours. Afebrile for greater than 48 hrs and WBC now WNL decreased from 11.6 on admit to 5.8 today. Plan to switch to PO levoquin 500 mg starting 02/06 at 1800 -- plan for 14 day course. (2) Complicated UTI (urinary tract infection) Conclusion/Plan: On admit unable to give a detailed history, became more alert 02/04 and his was able to be at bedside yesterday filling in details: He had a tooth abscess and required IV antibiotics about 1-2 months ago. He then developed diarrhea. There was brief blood in the diarrhea which stopped and he sought no medical attention for it. He has polyps that need to be removed with yearly colonoscopy and he thought it was a bleeding polyp. 1 week ago he developed hematuria with cloudy urine, plus nausea & vomiting, rigors, fevers and chills. He presented to the ER several days into all of these symptoms. CT of the abdomen/pelvis showed pericystic stranding consistent with cystitis. Both urine and blood cultures are growing E coli, which is stewart sensitive. Ceftriaxone 1 g IV started in the ED. We have increased the Ceftriaxone to 2 g IV daily, as of yesterday. Fluid resuscitation was given for 2 days, stopped 02/04 when he complained of new ankle edema. Switching to Levoquin 500 mg PO this evening for Male source of infection, with plan for discharge tomorrow if well tolerated with no recurrence of fevers. (3) Sarcoidosis Conclusion/Plan: This is affecting his pulmonary and cardiac systems. The details of those pathologies were not known at admission since the patient was too groggy to give details, until yesterday. Patient is normally on azathioprine which he stopped 2 days before admission and has been held while treating sepsis. Will plan to continue to hold until seen in the outpatient setting. (4) Chronic systolic heart failure Conclusion/Plan: The patient was not awake enough at admission to give details of this history. It was learned that he is followed by a hub associate at [facility]. He has a defibrillator. His last LVEF was 48%, up from 33% in the past. This is the reason that he is on B-brandan, spironolactone and torsemide plus potassium 02/04 he noticed ankle edema and requested that his IV fluids be stopped and they were. 02/05 his exam shows anasarca, feeling "bloated with no apetite, and 3+ edema up to the groin. Oral Torsemide and Spironolactone were resumed. Diuresed over 4L since yesterday with a huge improvement in edema. LE edema now only 2+ extending only 3[address] his calfs. Appetite improved, no longer has the feeling of being bloated. Discontinued Torsemide. Mid day electrolytes checked, K 3.7. Monitor urine output and edema tomorrow to decide if home Torsemide should be restarted or continue to be held. (5) Valve replacement Conclusion/Plan: According to the patient, when he had his previous defibrillator lead placed, the lead poked through a tricuspid valve leaflet, which made the tricuspid valve leak severely and he eventually needed open heart surgery for a tricuspid valve replacement (with a bioprosthetic valve) and a new defibrillator lead placement. (6) Cardiac arrhythmia Conclusion/Plan: The details of of what arrhythmia he had are not known. We resumed patient's sotalol 120 mg p.o. twice daily. He did not have an EKG at admission. An EKG was done 02/05. The EKG shows a dual-chamber paced rhythm. No longer on telemetry, he is stable. (7) Hypothyroidism Conclusion/Plan: On Synthroid 150 mcg p.o. daily. (8) Postherpetic neuralgia Conclusion/Plan: On Gabapentin 300 mg in the morning and 600 mg at night. (9) Insomnia Conclusion/Plan: Ativan 1 mg p.o. hs as needed was ordered, on top of his usual Trazadone at hs. (10) Sepsis Resolved. Sepsis was from a UTI/ cystitis and he has bacteremia. The fever, elevated WBC and altered mental status have improved and sepsis has resolved. (11) Acute kidney injury Conclusion/Plan: Resolved. Likely secondary to sepsis from UTI. Creatinine was 2.4 at admission with estimated GFR of 28>> 1.1 >> 0.9 Patient received a total of 3-1/2 L of IV fluid in the ED, the was on 150 cc/hr iv hydration for 2 days. IV hydration was stopped due to volume overload. Home diuresis resumed. Will avoid nephrotoxins Following BMP daily - Current Meds Current Meds: Current Medications Generic Name Dose Route Start Last Admin Trade Name Freq PRN Reason Stop Dose Admin Acetaminophen 650 mg 02/02/22 18:25 02/06/22 16:11 Acetaminophen 325 Mg Tablet PO 650 mg Q4HR PRN Administration Pain 1 to 4, or Fever Enoxaparin Sodium 40 mg 02/03/22 09:00 02/06/22 08:56 Enoxaparin 40 Mg/0.4 Ml Syringe SUBQ 40 mg DAILY MONICA Administration Gabapentin 300 mg 02/03/22 09:00 02/06/22 08:56 Gabapentin 300 Mg Capsule PO 300 mg DAILY MONICA Administration Gabapentin 600 mg 02/02/22 21:00 02/05/22 21:25 Gabapentin 300 Mg Capsule PO 600 mg QPM MONICA Administration Levothyroxine Sodium 150 mcg 02/03/22 07:00 02/06/22 06:26 Levothyroxine 75 Mcg Tablet PO 150 mcg QDAC MONICA Administration Lorazepam 1 mg 02/04/22 18:25 02/05/22 21:28 Lorazepam 0.5 Mg Tablet PO 1 mg QPM PRN Administration Insomnia Ondansetron HCl 4 mg 02/02/22 18:25 02/05/22 16:22 Ondansetron 4 Mg/2 Ml Vial IVP 4 mg Q6HR PRN Administration Nausea / Vomiting Potassium Chloride 20 meq 02/05/22 17:00 02/06/22 08:56 Potassium Chloride 20 Meq Tablet PO 20 meq BIDWM MONICA Administration Saccharomyces Boulardii 250 mg 02/05/22 12:00 02/06/22 08:56 Saccharomyces Boulardii 250 Mg Capsule PO 250 mg BIDWM MONICA Administration Sodium Chloride 10 ml 02/02/22 18:25 02/06/22 09:05 Sodium Chloride Flush 0.9% 10 Ml Syringe IVP 10 ml PRN PRN Administration NEEDED PER PROVIDER ORDERS Sodium Chloride 10 ml 02/03/22 01:00 02/06/22 09:09 Sodium Chloride Flush 0.9% 10 Ml Syringe IVP 10 ml 0100,0900,1700 MONICA Administration Sotalol HCl 120 mg 02/03/22 09:00 02/06/22 08:58 Sotalol 80 Mg Tablet PO 120 mg BID MONICA Administration Spironolactone 25 mg 02/05/22 12:00 02/06/22 08:57 Spironolactone 25 Mg Tablet PO 25 mg DAILY MONICA Administration Trazodone HCl 200 mg 02/03/22 21:00 02/05/22 21:25 Trazodone 50 Mg Tablet PO 200 mg QPM MONICA Administration - Lab Result Lab results reviewed: Yes Fish Bone Diagrams: 02/06/22 06:24 02/06/22 11:29 - Diagnostic Imaging Results Diagnostic Imaging Results: See rad report - Additional Planning Condition/Complexity: Improved Plan Discussed with:: Patient, Spouse Time Spent: Less than 15 minutes Subjective - Subjective Patient Reports: Feeling Better, Resting Comfortably (Much more comfortable after fluid loss over the last 24 hrs. Appetite has returned. Ankles still swollen, but improved from yesterday. Asked to hold Torsemide today as he has just been peeing constantly since yesterday evening.) Objective Vital Signs: Vital Signs - 24 hr 02/05/22 02/06/22 02/06/22 21:00 05:00 07:39 Temperature 37.0 C 36.6 C 36.6 C Heart Rate [ 75 75 75 Brachial] Respiratory 17 17 18 Rate Blood Pressure 121/84 H [Left Brachial artery] Blood Pressure 128/84 H 107/74 [Right Brachial artery] O2 Saturation 99 97 97 02/06/22 02/06/22 02/06/22 08:58 12:21 15:30 Temperature 36.3 C L 36.8 C Heart Rate [ 76 75 74 Brachial] Respiratory 16 16 Rate Blood Pressure 104/78 115/81 H 120/87 H [Left Brachial artery] Blood Pressure [Right Brachial artery] O2 Saturation 100 99 Oxygen O2 Source Room air I&O (Last 24 Hrs): Intake and Output Totals x24h 02/04/22 02/05/22 02/06/22 23:59 23:59 23:59 Intake Total 3087.5 1800 1248 Output Total 271 4225 3250 Balance 2612.5 -2425 -2002 General: Alert, Oriented x3, No acute distress HEENT: Atraumatic, Mucous membr. moist/pink Neck: Supple Neuro: Alert Cardiovascular: Regular rate Respiratory: No respiratory distress, Breath sounds nml Abdomen: Normal bowel sounds, Soft, No tenderness Extremities: Other (2+ edema to bilateral lower extremites extending up 3/4 of his calfs) - Results Results: Laboratory Results WBC 5.8 x10^3/uL (4.8-10.8) 02/06/22 06:24 RBC 3.75 10^6/uL (4.70-6.10) L 02/06/22 06:24 Hgb 12.2 g/dL (14.0-18.0) L 02/06/22 06:24 Hct 33.6 % (42.0-52.0) L 02/06/22 06:24 MCV 89.6 fL (80.0-94.0) 02/06/22 06:24 MCH 32.5 pg (27.0-31.0) H 02/06/22 06:24 MCHC 36.3 g/dL (32.0-36.0) H 02/06/22 06:24 RDW 12.2 % (12.0-15.0) 02/06/22 06:24 Plt Count 154 10^3/uL (130-450) 02/06/22 06:24 MPV 10.4 fL (7.4-11.4) 02/06/22 06:24 Neut # (Auto) 3.7 10^3/uL (1.5-6.6) 02/06/22 06:24 Lymph # (Auto) 1.3 10^3/uL (1.5-3.5) L 02/06/22 06:24 [place] # (Auto) 0.6 10^3/uL (0.0-1.0) 02/06/22 06:24 Eos # (Auto) 0.1 10^3/uL (0.0-0.7) 02/06/22 06:24 Baso # (Auto) 0.0 10^3/uL (0.0-0.1) 02/06/22 06:24 Absolute Nucleated RBC 0.00 x10^3/uL 02/06/22 06:24 Total Counted 100 02/03/22 06:09 Band Neuts % (Manual) 13 % (0-10) H 02/03/22 06:09 Abnorm Lymph % (Manual) 0 % 02/03/22 06:09 Metamyelocytes % 6 % (-0) H 02/02/22 10:45 Myelocytes % 2 % (-0) H 02/02/22 10:45 Nucleated RBC % 0.0 /100WBC 02/06/22 06:24 Neutrophils # (Manual) 13.6 10^3/uL (1.5-6.6) H 02/03/22 06:09 Lymphocytes # (Manual) 0.1 10^3/uL (1.5-3.5) L 02/03/22 06:09 Monocytes # (Manual) 0.4 10^3/uL (0.0-1.0) 02/03/22 06:09 Eosinophils # (Manual) 0.0 10^3/uL (0-0.7) 02/03/22 06:09 Basophils # (Manual) 0.0 10^3/uL (0-0.1) 02/03/22 06:09 Differential Comment MANUAL DIFFERENTIAL 02/03/22 06:09 Manual Slide Review Indicated 02/02/22 10:45 WBC Morphology 2+ VACUOLATION (NORMAL) 02/02/22 10:45 Platelet Estimate NORMAL (130-450,000) (NORMAL) 02/03/22 06:09 Platelet Morphology PLATELET CLUMPING (NORMAL) 02/02/22 10:45 RBC Morph Micro Appear NORMAL APPEARANCE (NORMAL) 02/03/22 06:09 Sodium 138 mmol/L (135-145) 02/06/22 11:29 Potassium 3.7 mmol/L (3.5-5.0) 02/06/22 11:29 Chloride 97 mmol/L (101-111) L 02/06/22 11:29 Carbon Dioxide 31 mmol/L (21-32) 02/06/22 11:29 Anion Gap 10.0 (6-13) 02/06/22 11:29 BUN 17 mg/dL (6-20) 02/06/22 11:29 Creatinine 1.0 mg/dL (0.6-1.2) 02/06/22 11:29 Estimated GFR (MDRD) 77 (>89) L 02/06/22 11:29 Glucose 115 mg/dL (70-100) H 02/06/22 11:29 Lactic Acid 2.1 mmol/L (0.5-2.2) 02/03/22 09:24 Calcium 9.0 mg/dL (8.5-10.3) 02/06/22 11:29 Phosphorus 2.6 mg/dL (2.5-4.6) 02/02/22 18:41 Magnesium 2.0 mg/dL (1.7-2.8) 02/05/22 06:03 Total Bilirubin 1.7 mg/dL (0.2-1.0) H 02/02/22 10:45 AST 80 IU/L (10-42) H 02/02/22 10:45 ALT 46 IU/L (10-60) 02/02/22 10:45 Alkaline Phosphatase 186 IU/L (42-121) H 02/02/22 10:45 B-Natriuretic Peptide 519 pg/mL (5-100) H 02/06/22 11:29 Total Protein 6.7 g/dL (6.7-8.2) 02/02/22 10:45 Albumin 3.5 g/dL (3.2-5.5) 02/02/22 10:45 Globulin 3.2 g/dL (2.1-4.2) 02/02/22 10:45 Albumin/Globulin Ratio 1.1 (1.0-2.2) 02/02/22 10:45 Procalcitonin 142.912 ng/mL (<0.5) H* 02/02/22 10:45 Urine Color BROWN 02/02/22 10:37 Urine Clarity CLOUDY (CLEAR) 02/02/22 10:37 Urine pH 5.5 PH (5.0-7.5) 02/02/22 10:37 Ur Specific [place] 1.025 (1.002-1.030) 02/02/22 10:37 Urine Protein >=300 mg/dL (NEGATIVE) H 02/02/22 10:37 Urine Glucose (UA) NEGATIVE mg/dL (NEGATIVE) 02/02/22 10:37 Urine Ketones NEGATIVE mg/dL (NEGATIVE) 02/02/22 10:37 Urine Occult Blood LARGE (NEGATIVE) H 02/02/22 10:37 Urine Nitrite NEGATIVE (NEGATIVE) 02/02/22 10:37 Urine Bilirubin NEGATIVE (NEGATIVE) 02/02/22 10:37 Urine Urobilinogen 1 (NORMAL) E.U./dL (NORMAL) 02/02/22 10:37 Ur Leukocyte Esterase MODERATE (NEGATIVE) H 02/02/22 10:37 Urine RBC TNTC /HPF (0-5) H 02/02/22 10:37 Urine WBC >25 /HPF (0-3) H 02/02/22 10:37 Urine WBC Clumps PRESENT 02/02/22 10:37 Ur Epithelial Cells MANY Transitional /HPF (<= Few) HMANY Renal Tubular /HPF (<= Few) H 02/02/22 10:37 Ur Epithelial Cells MANY Transitional /HPF (<= Few) HMANY Renal Tubular /HPF (<= Few) H 02/02/22 10:37 Ur Squamous Epith Cells FEW Squamous (<= Few) 02/02/22 10:37 Urine Bacteria Many /HPF (None Seen) H 02/02/22 10:37 Urine Culture Comments INDICATED 02/02/22 10:37 Nasal Adenovirus (PCR) NOT DETECTED 02/02/22 11:25 Nasal B. parapertussis DNA (PCR) NOT DETECTED 02/02/22 11:25 Nasal Coronavir 229E PCR NOT DETECTED 02/02/22 11:25 Nasal Coronavir HKU1 PCR NOT DETECTED 02/02/22 11:25 Nasal Coronavir NL63 PCR NOT DETECTED 02/02/22 11:25 Nasal Coronavir OC43 PCR NOT DETECTED 02/02/22 11:25 Nasal Enterovir/Rhinovir PCR NOT DETECTED 02/02/22 11:25 Nasal Influenza B PCR NOT DETECTED 02/02/22 11:25 Nasal Influenza A PCR NOT DETECTED 02/02/22 11:25 Nasal Parainfluen 1 PCR NOT DETECTED 02/02/22 11:25 Nasal Parainfluen 2 PCR NOT DETECTED 02/02/22 11:25 Nasal Parainfluen 3 PCR NOT DETECTED 02/02/22 11:25 Nasal Parainfluen 4 PCR NOT DETECTED 02/02/22 11:25 Nasal RSV (PCR) NOT DETECTED 02/02/22 11:25 Nasal B.pertussis DNA PCR NOT DETECTED 02/02/22 11:25 Nasal C.pneumoniae (PCR) NOT DETECTED 02/02/22 11:25 Jordon Human Metapneumo PCR NOT DETECTED 02/02/22 11:25 Nasal M.pneumoniae (PCR) NOT DETECTED 02/02/22 11:25 Nasal SARS-CoV-2 (PCR) NOT DETECTED 02/02/22 11:25 Sepsis Event Note (H) - Evaluation Current Stage of Sepsis: Sepsis Possible source of Sepsis: positive: Genitourinary Confirmed Source and Organism (if known) of Sepsis: , E-coli - Sepsis Criteria Sepsis Criteria: Recorded Temperature greater than 38.3C or Less than 36C, WBC count greater than 10% bands, Metabolic: lactate > 2 mmol/L ABX Reporting Has patient been on IV antibiotics over the past 48 hours?: Yes
[2022-02-06] MEDS: levoFLOXacin 250 MG TABLET PO SCH (18:04)
[2022-02-06] MEDS: traZODone 50 MG TABLET PO SCH (20:53)
[2022-02-06] MEDS: IBUPROFEN 400 MG TABLET PO PRN (20:53)
[2022-02-06] MEDS: LORazepam 0.5 MG TABLET PO PRN (20:54)
[2022-02-07] MEDS: SODIUM CHLORIDE FLUSH 0.9% 10 ML SYRINGE IVP SCH ×2 (00:44→09:14)
[2022-02-07] MEDS: IBUPROFEN 400 MG TABLET PO PRN (05:42)
[2022-02-07] MEDS: LEVOTHYROXINE 75 MCG TABLET PO SCH (05:42)
[2022-02-07] MEDS: SODIUM CHLORIDE FLUSH 0.9% 10 ML SYRINGE IVP PRN (05:44)
[2022-02-07 05:53] LABS: CALCIUM 8.7 mg/dL (8.5-10.3); CREATININE 0.9 mg/dL (0.6-1.2); POTASSIUM 3.6 mmol/L (3.5-5.0)
--- NOTE | 2022-02-07 09:01 | Discharge Plan ---
Discharge Plan Problem Reviewed?: Yes Disposition: Home, Self Care Condition: Stable Prescriptions: levoFLOXacin [Levaquin] 500 mg PO DAILY #16 tablet Diet: Regular Activity Restrictions: Activity as Tolerated Shower Restrictions: No Driving Restrictions: No Health Concerns: You are a gentleman who has a past medical history for sarcoidosis that is affected her lungs and heart and a previous procedure has ruptured your tricuspid valve and you have a tricuspid valve repair. You presented to the emergency room with painful urination for 2 days, blood in your urine on the day of admission and he started to have shaking fevers. Your fever was as high as 104. We felt that you were immunocompromised since you are on azathioprine. We found to be in septic shock and you needed immediate resuscitation with aggressive intravenous fluids, and antibiotics. You have responded very nicely and are now on the road to recovery. The source of your infection was your bladder and your blood cultures grew out E. coli. Plan of Treatment: 1. Our current standard for gentleman who have bladder and prostate problems and have this type of bacteria growth to be on anywhere from 14 to 21 days of antibiotic therapy. You have recovered so nicely that you will be sent home on 8 more days of antibiotics by mouth. That will be 14 days. 2. Please discuss with your primary care provider if you need longer treatment. Your primary care provider may repeat your urinalysis, as well as a CBC to check your white cell count. 3. Please use your commonsense with regards to how hard you push yourself. Listen to your body. I am not limiting your activity at this time but I would prefer you not to do aggressive hiking, rockclimbing, etc. Just take it easy and do normal activities such as walking in her house, dressing herself, and short drives. You will eventually recover your strength. Care Goals: To completely recover from this current infection, and return to your baseline strength and activity Assessment: Patient is alert, oriented, iterates that he feels safe to go home and can dress himself, feed himself, and overall take care of himself without assist No Smoking: If you smoke, Please STOP! Call for help.
[2022-02-07] MEDS: SACCHAROMYCES BOULARDII 250 MG CAPSULE PO SCH (09:13)
[2022-02-07] MEDS: POTASSIUM CHLORIDE 20 MEQ TABLET PO SCH (09:13)
[2022-02-07] MEDS: SPIRONOLACTONE 25 MG TABLET PO SCH (09:14)
[2022-02-07] MEDS: ENOXAPARIN 40 MG/0.4 ML SYRINGE SUBQ SCH (09:14)
[2022-02-07] MEDS: SOTALOL 80 MG TABLET PO SCH (09:14)
[2022-02-07] MEDS: GABAPENTIN 300 MG CAPSULE PO SCH (09:14)
[2022-02-07] MEDS: levoFLOXacin 250 MG TABLET PO SCH (09:14)
--- NOTE | 2022-02-07 09:19 | DISCHARGE SUMMARY ---
"Discharge Summary Admit Date: 02/02/22 Discharge Date: 02/07/22 Discharging Provider: Aparna Bergeron MD Primary Care Provider: Neda Valles MD Code Status: Attempt Resuscitation Condition at Discharge: Stable Discharge Disposition: 01 Home, Self Care - DIAGNOSES Discharge Diagnoses with Status of Each Condition: 1. Severe sepsis with acute organ dysfunction 2. Acute renal failure 3. Cystitis with E. coli 4. E. coli bacteremia 5. Sarcoidosis 6. Immunocompromise status secondary to azathioprine 7. Postherpetic neuralgia 8. Nonspecific arrhythmia 9. Hypothyroidism 10. Chronic insomnia 11. acute on chronic systolic HF 12. h/0 tricuspid valve replacement - HPI History of Present Illness: Patient is a 56-year-old male with medical history significant for sarcoidosis affecting the lungs and heart, post herpetic neuralgia, insomnia, arrhythmia and hypothyroidism who presented to the ED today with complaint of dysuria for 2 days, hematuria today and rigors. His temperature was as high as 104 F at h ome. He is on azathioprine for sarcoidosis. He has not taken this in 2 days. Upon presentation to the ED he had systolic blood pressures as low as 77. Work- up included a CBC which showed white blood cell count of 11 with 52% bands. His lactic acid was 4.6. Urine analysis done was strongly indicated of of a urinary tract infection. CT of the abdomen/pelvis showed stranding consistent with cystitis. As a result of the above he was presented for admission for further treatment. At bedside he is resting somewhat comfortably but appears anxious. He denies chest pain, dyspnea. He reports nausea currently. He last vomited the previous night. He also reports generalized abdominal discomfort. The rest of the history is unremarkable. Past Medical History Cardiovascular: reports: Arrhythmia Respiratory: reports: Other Neuro: reports: None, Other (Post herpetic neuralgia) Endocrine/Autoimmune: reports: None, HyPOthyroidism (following thyroidectomy) GI: reports: None Other Past Medical History: sarcodoisis, Insomnia - Past Surgical History General: reports: Cholecystectomy, Other (right inguinal hernia) Cardiovascular: reports: Pacemaker, Other (tricuspid valve replacement) Other past surgical history: Right ureter surgery - CONSULTS | PROCEDURES Procedures: 1. Chest x-ray is without acute cardiopulmonary process 2. Abdomen/pelvis CT is without renal, ureteral, or bladder calculi. Bladder wall is thickened possibly secondary to incomplete distention. However it is also noted that there is mild pericystic stranding seen with cystitis. Recommend correlation with patient's symptoms and urinalysis. 3. Blood culture on February 02 has 3 out of 4 bottles positive for E. coli. Blood culture on February 04 is without growth after 2 days. - HOSPITAL COURSE Hospital Course: He is a gentleman who has sarcoidosis and has had previous heart procedure resulting in a rupture tricuspid valve. With sepsis resuscitation he received copious amounts of fluids and and then had to be diuresed because of fluid overload and edema. We found him to have sepsis from gram-negative rods. Possible urinary source. As such he will need longer therapy with antibiotcs than in the inpatient stay. His sepsis criteria resolved with appropriate antibiotic therapy. And by the time of discharge he was eating 100% of his food. Ambulating in his room. Fatigued because of the severe bout of infection but doing well. By the time of discharge his BUN and creatinine were 16 and 0.9. White cell count had normalized to 5.8. During his stay he had no fever. At discharge temperature is 36.8. Heart rate 75. Blood pressure 132/87. Respirations 1600% on room air. He was 5 foot tall, 10 inches. 89.5 kg. Alert oriented stocky white male looks stated age. In no acute distress. Lungs were clear. Regular rate and rhythm. Abdomen soft nontender. Extremities without edema. Greater than 30 minutes was spent coordinating discharge - ALLERGIES Allergies/Adverse Reactions: Allergies Allergy/AdvReac Type Severity Reaction Status Date / Time clarithromycin [From Biaxin] Allergy Unknown Verified 02/02/22 10:38 clindamycin Allergy Unknown Verified 02/02/22 10:38 Penicillins Allergy Unknown Verified 02/02/22 10:38 - MEDICATIONS Home Medications: Ambulatory Orders Medication Instructions Recorded Confirmed Gabapentin [Neurontin] 600 mg PO QPM 02/03/22 02/04/22 Levothyroxine Sodium [Synthroid] 150 mcg PO QDAC 02/03/22 02/03/22 Nitroglycerin [Nitrostat] 0.3 mg SL Q5M PRN 02/03/22 02/03/22 Sotalol HCl [Betapace AF] 120 mg PO BID 02/03/22 02/03/22 Torsemide 20 mg PO BIDDIURETIC 02/03/22 02/03/22 Trazodone HCl 200 mg PO QPM 02/03/22 02/03/22 azaTHIOprine [Imuran] 100 mg PO DAILY 02/03/22 02/03/22 Gabapentin [Neurontin] 300 mg PO DAILY 02/04/22 02/04/22 Potassium Chloride [Klor-Con] 20 meq PO BIDWM 02/04/22 02/04/22 Spironolactone [Aldactone] 25 mg PO DAILY 02/04/22 02/04/22 levoFLOXacin [Levaquin] 500 mg PO DAILY #16 tablet 02/07/22 - LABS Result Diagrams: 02/06/22 06:24 02/07/22 05:33 - SEPSIS Current Stage of Sepsis: Sepsis Possible source of Sepsis: Genitourinary Sepsis Criteria: Recorded Temperature greater than 38.3C or Less than 36C, WBC count greater than 10% bands, Metabolic: lactate > 2 mmol/L"
[2022-02-07 11:10] VITALS: BP 132/87
== END 2022-02-07 12:20 | disposition home or self-care (01) | DRG 871 ==
LOC: ED 10:08 → MS2 18:25
PROVIDERS: ADMIT Internal Medicine; ATTEND Specialist
DX: A41.51 Sepsis due to Escherichia coli [E. coli] (principal); I50.23 Acute on chronic systolic (congestive) heart failure; N17.9 Acute kidney failure, unspecified; B02.29 Other postherpetic nervous system involvement; D84.821 Immunodeficiency due to drugs; R65.20 Severe sepsis without septic shock; N30.90 Cystitis, unspecified without hematuria; B96.20 Unspecified Escherichia coli [E. coli] as the cause of diseases classified elsewhere; I49.9 Cardiac arrhythmia, unspecified; E03.9 Hypothyroidism, unspecified; G47.00 Insomnia, unspecified; D86.89 Sarcoidosis of other sites; Z20.822 Contact with and (suspected) exposure to COVID-19; Z79.890 Hormone replacement therapy; Z79.899 Other long term (current) drug therapy; Z88.0 Allergy status to penicillin; Z88.1 Allergy status to other antibiotic agents; Z90.49 Acquired absence of other specified parts of digestive tract; Z95.2 Presence of prosthetic heart valve; Z95.810 Presence of automatic (implantable) cardiac defibrillator
CPT/HCPCS: 36415; 71045; 74176; 80048; 80053; 81001; 83605; 83735; 83880; 84100; 84145; 85025; 87040; 87077; 87086; 87150; 87181; 87633; 93005; 96361; 96374; 96375; 99284; 99285; A9270; J1650

== ENCOUNTER 2022-04-03 11:37 | Outpatient (CLI) | payer OTHER ==
[2022-04-03 12:29] LABS: THYROID STIMULATING HORMONE 0.24 uIU/mL (0.34-5.60)
[2022-04-03 13:32] LABS: FREE T4 (FREE THYROXINE) 0.89 ng/dL (0.58-1.64)
== END 2022-04-03 11:38 | disposition home or self-care (01) ==
LOC: LAB 11:37
PROVIDERS: ATTEND Nurse Practitioner
DX: E03.9 Hypothyroidism, unspecified (principal)
CPT/HCPCS: 36415; 84439; 84443